=== PATIENT | male | born 1940 | race Caucasian/White ===

== ENCOUNTER 2021-04-20 05:52 | Inpatient (IN) | payer OTHER ==
[~2021-04-20] VITALS: Ht 170.2 cm; Wt 68.0 kg
[~2021-04-20 05:52] MED LIST: ACET325T21 PO; ACET500T68 PO; AMIN30LI2 PO; ASPI-630 PO; BACL20TA PO; BUPR150T21 PO; CARB1TAB47 PO; DIME92CR TP; ESCITALOPRAM OX10 MG PO; FURO-68 PO; KETO120S5 TP; LACT1CAP19 PO; LEVO500T9 PO; LEVO75TA5 PO; LORA0.5T96 PO; MENT118G TP; MULT-245 PO; PANT40TA77 PO; POLY17PO29 PO; POTA-112 PO; PSYL3.4P PO; SENN8.6T11 PO
[2021-04-20] MEDS ORDERED: IV NORMAL SALINE 1000ML BAG 1,000 ML IV ONE (06:15)
[2021-04-20] MEDS ORDERED: ONDANSETRON PF 4 MG/2 ML VIAL. IVP ONE (06:15)
[2021-04-20 06:24] LABS: CREATININE 1.2 mg/dL (0.7-1.3); GFR 58.6; POTASSIUM 4.2 mmol/L (3.5-5.1)
--- NOTE | 2021-04-20 06:24 | PHYS DOC ---
Past Medical History Past Medical History: Anxiety, Depression, GERD, Hypothyroid, Renal Disease, Other Additional Past Medical Histor: Parkinson's, CKD stg II, cogn comms def, esophagitis, torticollis, hernia, Past Surgical History: No Surgical History Additional Past Surgical Histo: R testicle Smoking Status: Never Smoker Alcohol Use: None Drug Use: None General Adult EDM: Chief Complaint: GI PROBLEM HPI: HPI: 80-year-old male past medical history of advanced Parkinson's disease (bedbound, on no AC), CKD stage III, hypothyroidism, cognitive communication deficit, hypothyroidism, GERD, anxiety and depression, presents to the ED from medicalod ge brought by EMS with concern for vomiting 3 times since yesterday afternoon, described as "coffee-ground emesis." EMS reports patient's baseline mental status is GCS 14 and pt was 84% on RA-no oxygen at baseline. Patient is alert, can state his name and date of but history is very limited due to known communication barrier. Pt states "checking on me," but speech in muffled. Paperwork from facility reviewed. H/o covid 12/2019. Last admission in 05/2020 was concerning for bowel obstruction with similar presentation and anemia. Review of Systems: Review of Systems: ROS limited due to communication deficit Heart Score: C/O Chest Pain: No Risk Factors: Risk Factors: DM, Current or recent (<one month) smoker, HTN, HLP, family history of CAD, obesity. Risk Scores: Score 0 - 3: 2.5% MACE over next 6 weeks - Discharge Home Score 4 - 6: 20.3% MACE over next 6 weeks - Admit for Clinical Observation Score 7 - 10: 72.7% MACE over next 6 weeks - Early Invasive Strategies Allergies: Allergies: Allergies Coded Allergies Type Severity Reaction Last Updated Verified Penicillins Allergy Intermediate 03/23/20 Yes Physical Exam: PE: Constitutional: afebrile, non-toxic appearance. HENT: Normocephalic, atraumatic, contracted neck to right, dry mucous membrances Eyes: EOMI, conjunctiva normal, no discharge. Neck: Normal range of motion, supple, Cardiovascular: S1/2 present, tachycardic, 91% on 6LNC Lungs & Thorax: Speaking in full sentences, bilateral equal chest rise, no tachypnea or increased work of breathing Abdomen: soft, no grimace with palpation, no active emesis in ed, no distention Skin: Warm, dry, Back: No midline step offs of tenderness, no CVA tenderness, Extremities: No tenderness, no cyanosis, no lower extremity edema, bruise over right posterior thigh Neurologic: Alert, normal motor function, contracted LEs >> UE-can squeeze fingers Psychologic: Affect normal, mood normal. [] : Light brown stool in diaper, no bright red blood EKG: EKG: Sinus tachycardia 105 bpm, left axis deviation, QRS 128, QTc 477, T wave inversion lead III, aVF, V1 through V5, right bundle branch block present, no ST elevation or ST depression Radiology/Procedures: Radiology/Procedures: []IMAGING REPORT Signed PATIENT: JOSIAH MCKEON ACCOUNT: [id number] : 1940 LOCATION: ER AGE: 80 SEX: M EXAM STATUS: REG ER ORD. PHYSICIAN: RITU RASMUSSEN DO REASON: vomiting PROCEDURE: CT HEAD WO CONTRAST CT Head W/O Contrast: History: Reason: vomiting / Spl. Instructions: / History: Comparison: none Axial images were obtained without contrast. There is moderate diffuse atrophy. There is asymmetry in the brain with the right lateral ventricle larger than left and the left sylvian fissure larger than the right. There is also asymmetry of CSF attenuating fluid anteriorly around the left frontal lobe and medial to the right frontal lobe which could be hygroma or old subdural hematomas. There is no mass effect or gross bleed. There is no focal loss of keenan-white matter distinction to suggest acute ischemia, i.e. stroke. There is fluid in the mastoid air cells on the right. Impression: 1. Atrophy and possible old hygroma or old subdural hematomas. 2. Fluid in the mastoid air cells the right is nonspecific but could be mastoiditis. 3. No acute intracranial findings. End impression PQRS Compliance Statement: One or more of the following individualized dose reduction techniques were utilized for this examination: 1. Automated exposure control 2. Adjustment of the mA and/or kV according to patient size 3. Use of iterative reconstruction technique Electronically signed by: Cee Ballard III, MD (04/20/2021 7:30 AM) [facility] DICTATED and SIGNED BY: CEE BALLARD III, MD DATE: 04/20/21 [id number] IMAGING REPORT Signed PATIENT: JOSIAH MCKEON ACCOUNT: [id number] : 1940 LOCATION: ER AGE: 80 SEX: M EXAM STATUS: REG ER ORD. PHYSICIAN: RITU RASMUSSEN DO REASON: vomiting, cough PROCEDURE: PORTABLE CHEST 1V XR CHEST 1V Clinical History: Reason: vomiting, cough / Spl. Instructions: / History: Technique: AP view of the chest was obtained at 04/20/2021 7:01 AM. Comparison: January 10, 2013. Findings: The heart is top normal limits in size. The portal vessels appear somewhat cephalized this patchy opacity in the lung bases. There is low lung volumes causing crowding of vasculature. Impression: Low lung volumes. Basilar pulmonary infiltrates likely discoid atelectasis. Electronically signed by: Cee Ballard III, MD (04/20/2021 7:44 AM) [facility] DICTATED and SIGNED BY: CEE BALLARD III, MD DATE: 04/20/21 [id number] IMAGING REPORT Signed PATIENT: JOSIAH MCKEON ACCOUNT: [id number] : 1940 LOCATION: ER AGE: 80 SEX: M EXAM STATUS: REG ER ORD. PHYSICIAN: RITU RASMUSSEN DO REASON: vomtiing, r/o obstruction PROCEDURE: CT ABD PELV W/ IV CONTRST ONLY CT OF THE ABDOMEN AND PELVIS WITH IV CONTRAST. History: Reason: vomtiing Comparison: May 21, 2020. Procedure: Contiguous axial images of the abdomen and pelvis were performed after the administration of 60 cc of Omni 300 IV contrast. Oral contrast: No. Findings: There is a large hiatal hernia. There is levoconvex scoliosis of the lumbar spine and elevation right diaphragm. There is patchy opacity lung bases right worse than left. There is beam Mancia artifact due to prior right hip total arthroplasty. Patchy opacity in the lung bases could be discoid atelectasis or scar. There is distention of the rectal vault with air and stool The gallbladder is normal. The appendix is not well seen but is a small caliber loop of bowel inferior to the cecum which is likely appendix. There is portions the colon which are collapsed. Liver: Unremarkable Spleen: Unremarkable Pancreas: Atrophic Adrenal Glands: Unremarkable Kidneys: There is a left renal cyst There is no mass or lymphadenopathy. There is no free air. There is no free fluid. The urinary bladder appears normal. Impression: 1. Basilar pulmonary infiltrates right worse than left likely pneumonia. 2. Mild colonic ileus seen previously. End Impression PQRS Compliance Statement: One or more of the following individualized dose reduction techniques were utilized for this examination: 1. Automated exposure control 2. Adjustment of the mA and/or kV according to patient size 3. Use of iterative reconstruction technique Electronically signed by: Cee Ballard III, MD (04/20/2021 7:42 AM) [facility] DICTATED and SIGNED BY: CEE BALLARD III, MD DATE: 04/20/21 [id number] 0 Course & Med Decision Making: Course & Med Decision Making Pertinent Labs and Imaging studies reviewed. (See chart for details) Concern for bibasilar, consider aspiration, pneumonia in the setting of chronic ileus and hypoxia, requiring nasal cannula. Pt does meet sepsis criteria. CT of the head ordered due to history of vomiting-old hygromas vs sdh (mental status is not different from baseline). Will admit for further medical management. Patient stable at time of admission and agrees with this plan. Per senior care papers patient is a full code. I have spoken with the patient and/or caregivers. I have explained the patient's condition, diagnosis and treatment plan based on the information available to me at this time. I have answered the patient's and/or caregivers questions and answered any concerns. The patient and/or caregivers have as good an understanding of the patient's diagnosis, condition and treatment plan as can be expected at this point. The patient has been stabilized within the capability of the emergency department. The patient will be transported for further care and management or will be moved to an observation or inpatient service. I have communicated with the staff or medical practitioner taking over this patient's care. [place] Disclaimer: [place] Disclaimer: This electronic medical record was generated, in whole or in part, using a voice recognition dictation system. Departure Departure Impression: Primary Impression: Hypoxia Additional Impressions: Aspiration pneumonia Ileus Sepsis Disposition: ADMITTED INPATIENT Admitting Physician: SHAHID (Dr. Pope) Condition: STABLE Referrals: RAMIN FUNES MD (PCP) RITU RASMUSSEN DO Apr 20, 2021 06:24
[2021-04-20] MEDS ORDERED: IOHEXOL 300 MG/ML 100ML VIAL. IV ONE (06:30)
[2021-04-20 06:31] LABS: ALBUMIN 3.6 g/dL (3.4-5.0); DIRECT BILIRUBIN 0.2 mg/dL (0.0-0.2); MAGNESIUM 2.2 mg/dL (1.8-2.4); TOTAL BILIRUBIN 0.7 mg/dL (0.2-1.0); TOTAL PROTEIN 7.4 g/dL (6.4-8.2)
[2021-04-20 06:42] LABS: PROTHROMBIN TIME PATIENT 14.5 SEC (11.7-14.0)
[2021-04-20 06:44] LABS: BASO % 0 % (0-3); EOS % 0 % (0-3); HEMATOCRIT 45.2 % (39.0-53.0); HEMOGLOBIN 15.1 g/dL (13.0-17.5); LYMPH # 1.5 x10^3/uL (1.0-4.8); LYMPH % 10 % (24-48); MEAN CORPUSCULAR HEMOGLOBIN 30 pg (25-35); MEAN CORPUSCULAR HGB CONC 34 g/dL (31-37); MEAN CORPUSCULAR VOLUME 90 fL (79-100); MONO # 0.6 x10^3/uL (0.0-1.1); MONO % 4 % (0-9); NEUT % 85 % (31-73); PLATELET COUNT 213 x10^3/uL (140-400); RED BLOOD COUNT 5.01 x10^6/uL (4.30-5.70); RED CELL DISTRIBUTION WIDTH 14.6 % (11.5-14.5)
[2021-04-20] MEDS ORDERED: CONTRAST GIVEN. MC PRN (06:45)
--- NOTE | 2021-04-20 07:32 | RAD ---
CT Head W/O Contrast: History: Reason: vomiting / Spl. Instructions: / History: Comparison: none Axial images were obtained without contrast. There is moderate diffuse atrophy. There is asymmetry in the brain with the right lateral ventricle l arger than left and the left sylvian fissure larger than the right. There is also asymmetry of CSF at tenuating fluid anteriorly around the left frontal lobe and medial to the right frontal lobe which co uld be hygroma or old subdural hematomas. There is no mass effect or gross bleed. There is no focal loss of keenan-white matter distinction to suggest acute ischemia, i.e. stroke. There is fluid in the mastoid air cells on the right. Impression: 1. Atrophy and possible old hygroma or old subdural hematomas. 2. Fluid in the mastoid air cells the right is nonspecific but could be mastoiditis. 3. No acute intracranial findings. End impression PQRS Compliance Statement: One or more of the following individualized dose reduction techniques were utilized for this examinat ion: 1. Automated exposure control 2. Adjustment of the mA and/or kV according to patient size 3. Use of iterative reconstruction technique Electronically signed by: Prosper Bingham III, MD (04/20/2021 7:30 AM) [facility]
[2021-04-20 07:43] LABS: BILIRUBIN,URINE NEGATIVE (NEG); CLARITY,URINE CLEAR; COLOR,URINE YELLOW; NITRITE,URINE NEGATIVE (NEG); PROTEIN,URINE NEGATIVE (NEG-TRACE)
--- NOTE | 2021-04-20 07:44 | RAD ---
CT OF THE ABDOMEN AND PELVIS WITH IV CONTRAST. History: Reason: vomtiing Comparison: May 21, 2020. Procedure: Contiguous axial images of the abdomen and pelvis were performed after the administration of 60 cc o f Omni 300 IV contrast. Oral contrast: No. Findings: There is a large hiatal hernia. There is levoconvex scoliosis of the lumbar spine and elevation right diaphragm. There is patchy opacity lung bases right worse than left. There is beam Mancia artifact due to prior right hip total arthroplasty. Patchy opacity in the lung bases could be discoid atelectasis or scar. There is distention of the rectal vault with air and stool The gallbladder is normal. The appendix is not well seen but is a small caliber loop of bowel inferior to the cecum which is lik dominique appendix. There is portions the colon which are collapsed. Liver: Unremarkable Spleen: Unremarkable Pancreas: Atrophic Adrenal Glands: Unremarkable Kidneys: There is a left renal cyst There is no mass or lymphadenopathy. There is no free air. There is no free fluid. The urinary bladder appears normal. Impression: 1. Basilar pulmonary infiltrates right worse than left likely pneumonia. 2. Mild colonic ileus seen previously. End Impression PQRS Compliance Statement: One or more of the following individualized dose reduction techniques were utilized for this examinat ion: 1. Automated exposure control 2. Adjustment of the mA and/or kV according to patient size 3. Use of iterative reconstruction technique Electronically signed by: Prosper Bingham III, MD (04/20/2021 7:42 AM) [facility]
--- NOTE | 2021-04-20 07:46 | RAD ---
XR CHEST 1V Clinical History: Reason: vomiting, cough / Spl. Instructions: / History: Technique: AP view of the chest was obtained at 04/20/2021 7:01 AM. Comparison: January 10, 2013. Findings: The heart is top normal limits in size. The portal vessels appear somewhat cephalized this patchy [place] in the lung bases. There is low lung volumes causing crowding of vasculature. Impression: Low lung volumes. Basilar pulmonary infiltrates likely discoid atelectasis. Electronically signed by: Prosper Bingham III, MD (04/20/2021 7:44 AM) [facility]
[2021-04-20 07:50] LABS: BARBITURATES NEG (NEG); BENZODIAZEPINES NEG (NEG); CANNABINOIDS NEG (NEG); COCAINE NEG (NEG); METHADONE NEG (NEG); OPIATES NEG (NEG); PHENCYCLIDINE NEG (NEG)
[2021-04-20 07:53] LABS: AMPHETAMINE/METHAMPHETAMINE NEG (NEG)
[2021-04-20] MEDS ORDERED: CLINDAMYCIN 600MG PREMIX 50 ML IV ONE (08:00)
[2021-04-20] MEDS ORDERED: cefTRIAXone IV Push 1 GM VIAL. IVP ONE (08:00)
[2021-04-20 08:18] LABS: BACTERIA,URINE FEW /HPF (0-FEW); RBC,URINE 0 /HPF (0-2)
[2021-04-20 08:27] LABS: BASE EXCESS ABG 1 mmol/L (-3-3); FIO2 ABG 44; HCO3 ABG 24 mmol/L (21-28); PCO2 ABG 37 mmHg (35-46); PO2 ABG 81 mmHg (65-108); SAT O2 ABG 95 % (92-99)
[2021-04-20] MEDS: ASPIRIN CHEWABLE 81 MG TABLET. PO SCH (10:00)
[2021-04-20] MEDS: CARBIDOPA/LEVODOPA 25/100MG TABLET PO SCH ×3 (10:00→20:36)
[2021-04-20] MEDS: CITALOPRAM 20 MG TABLET. PO SCH (10:00)
--- NOTE | 2021-04-20 10:20 | PDOC1 ---
History and Physical Date of Admission Date of Admission DATE: 04/20/21 TIME: 09:49 Identification/Chief Complaint Chief Complaint Coffee-ground emesis Source Source: Chart review, Patient History of Present Illness History of Present Illness Patient 80-year-old male past medical history Parkinson's disease, CKD, hypothyroidism, cognitive communication deficit, GERD, anxiety/depression, who presents from [facility] with concerns of 3 episodes of coffee-ground emesis yesterday. Per EMS report, he was 85% on room air. He does not require any oxygen at baseline. Upon arrival in the ED he was placed on 6 L of nasal cannula with improvement in O2 saturation. Labs admission showed WBC 14.0, hemoglobin 15.1, hematocrit 45.2, BUN 33, creatinine 1.2, CBG 183, lactic acid 2.0. Chest x-ray showed low lung volumes, basilar pulmonary infiltrates. CT abdomen/pelvis showed basilar pulmonary infiltrates, right worse than left, and mild colonic ileus seen that was previously. In the ED he was given clindamycin, Rocephin, and IV fluids. Will be patient for further medical management. Past Medical History CENTRAL NERVOUS SYSTEM: Dementia, Other GI: Constipation Psych: Anxiety, Depression Endocrine: Hypothyroidism Past Surgical History Past Surgical History: No pertinent history Family History Family History: Family History Unknown Social History Smoke: No ALCOHOL: none Drugs: None Current Problem List Problem List Problems Medical Problems: (1) Aspiration pneumonia Status: Acute (2) Hypoxia Status: Acute (3) Ileus Status: Acute (4) Sepsis Status: Acute Current Medications Current Medications Current Medications Sodium Chloride 1,000 ml @ 1,000 mls/hr 1X ONCE IV Last administered on 04/20/21at 06:18; Start 04/20/21 at 06:15; Stop 04/20/21 at 07:14; Status DC Ondansetron HCl (Zofran) 4 mg 1X ONCE IVP Last administered on 04/20/21at 06:18; Start 04/20/21 at 06:15; Stop 04/20/21 at 06:17; Status DC Iohexol (Omnipaque 300 Mg/ml) 60 ml 1X ONCE IV ; Start 04/20/21 at 06:30; Stop 04/20/21 at 06:32; Status DC Info (CONTRAST GIVEN -- Rx MONITORING) 1 each PRN DAILY PRN MC SEE COMMENTS; Start 04/20/21 at 06:45; Stop 04/22/21 at 06:44 Ceftriaxone Sodium (Rocephin) 1 gm 1X ONCE IVP Last administered on 04/20/21at 08:26; Start 04/20/21 at 08:00; Stop 04/20/21 at 08:01; Status DC Clindamycin Phosphate 50 ml @ 100 mls/hr 1X ONCE IV Last administered on 04/20/21at 08:29; Start 04/20/21 at 08:00; Stop 04/20/21 at 08:29; Status DC Aspirin (Aspirin Chewable) 81 mg DAILY PO ; Start 04/21/21 at 09:00; Status UNV Bupropion HCl (Wellbutrin Xl) 150 mg DAILYWBKFT PO ; Start 04/21/21 at 08:00; Status UNV Levothyroxine Sodium (Synthroid) 75 mcg HS PO ; Start 04/20/21 at 21:00; Status UNV Non-Formulary Medication (Amino Acids/ Protein Hydrolys (Pro-Stat Liquid)) 30 ml BID PO ; Start 04/20/21 at 21:00; Status UNV Non-Formulary Medication (Carbidopa/ Levodopa (Carbidopa-Levo 25-100 Mg Odt)) 1 each TID PO ; Start 04/20/21 at 14:00; Status UNV Non-Formulary Medication (Escitalopram Oxalate ) 1 tab DAILY PO ; Start 04/21/21 at 09:00; Status UNV Active Scripts Active Culturelle (Lactobacillus Rhamnosus Gg) 1 Each Cap.sprink 1 Cap PO BID 14 Days Pantoprazole Sodium (Pantoprazole Sodium) 40 Mg Tablet.dr 40 Mg PO DAILYAC 14 Days Metamucil Fiber Singles Packet (Psyllium Husk/Aspartame) 3.4 Gm Powd.pack 1 Pkt PO DAILY16 30 Days Reported Acetaminophen 500 Mg Tablet 1 Tab PO BID PRN 30 Days Senna Laxative (Sennosides) 8.6 Mg Tablet 8.6 Mg PO HS Pro-Stat Liquid (Amino Acids/Protein Hydrolys) 30 Ml Liquid.pkt 30 Ml PO BID Klor-Con 10 (Potassium Chloride) 10 Meq Tablet.er 1 Tab PO DAILY 30 Days Nizoral (Ketoconazole) 120 Ml Shampoo 120 Ml TP TUSA Multi Vitamin Daily (Multivitamin) 1 Each Tablet 1 Tab PO DAILY 30 Days Miralax (Polyethylene Glycol 3350) 17 Gm Powd.pack 1 Packet PO DAILY 2 Days dissolve in water Ativan (Lorazepam) 0.5 Mg Tablet 0.5 Mg PO HS Escitalopram Oxalate 10 Mg Tablet 1 Tab PO DAILY Levothyroxine Sodium 75 Mcg Tablet 1 Tab PO HS Cavilon Durable Barrier (Dimethicone) 92 Gm Cream..g. 92 Gm TP BID Carbidopa-Levo 25-100 Mg Odt (Carbidopa/Levodopa) 1 Each Tab.rapdis 1 Each PO TID Bupropion Xl (Bupropion Hcl) 150 Mg Tab.er.24h 1 Tab PO DAILYWBKFT Biofreeze (Menthol) 118 Ml Gel..ml. 1 Anibal TP TID 10 Days Baclofen 20 Mg Tablet 1 Tab PO TID Aspirin 81 Mg Tab.chew 1 Tab PO DAILY Allergies Allergies: Coded Allergies: Penicillins (Verified Allergy, Intermediate, 03/23/20) ROS Review of System GENERAL: No history of weight change, weakness or fevers. SKIN: No bruising, hair changes or rashes. EYES: No blurred, double or loss of vision. NOSE AND THROAT: No history of nosebleeds, hoarseness or sore throat. HEART: Denies chest pain, denies palpitations. LUNGS: Denies cough, hemoptysis, wheezing or shortness of breath. GASTROINTESTINAL: Coffee-ground emesis. Denies abdominal pain. GENITOURINARY: Denies dysuria, frequency, urgency, hematuria. NEUROLOGIC: Denies history of numbness, tingling, tremor or weakness. PSYCHIATRIC: Denies anxiety, denies depression. ENDOCRINE: No history of heat or cold intolerance, polyuria or polydipsia. EXTREMITIES: Denies muscle weakness, joint pain, pain on walking or stiffness. Physical Exam Physical Exam General: Alert, Oriented X3, Cooperative, No acute distress HEENT: Neck contracted to the right. PERRLA, EOMI Lungs: Bibasilar crackles, normal air movement Heart: RRR, no murmurs Cardiovascular: S1, S2 Abdomen: Normal bowel sounds, Soft, No tenderness Extremities: Contracted lower extremities. No clubbing, No cyanosis Skin: No rashes, No significant lesion Neuro: Normal speech, Sensation intact Psych/Mental Status: Mental status NL, Mood NL Vitals Vitals Vital Signs Date Time Temp Pulse Resp B/P (MAP) Pulse Ox O2 Delivery O2 Flow Rate FiO2 04/20/21 06:30 102 167/90 (115) 91 Nasal Cannula 6.0 04/20/21 06:00 97.8 22 97.8 Labs Labs Laboratory Tests Test 04/20/21 06:00 04/20/21 06:05 04/20/21 07:27 04/20/21 08:22 White Blood Count 14.0 x10^3/uL (4.0-11.0) Red Blood Count 5.01 x10^6/uL (4.30-5.70) Hemoglobin 15.1 g/dL (13.0-17.5) Hematocrit 45.2 % (39.0-53.0) Mean Corpuscular Volume 90 fL (79-100) Mean Corpuscular Hemoglobin 30 pg (25-35) Mean Corpuscular Hemoglobin Concent 34 g/dL (31-37) Red Cell Distribution Width 14.6 % (11.5-14.5) Platelet Count 213 x10^3/uL (140-400) Neutrophils (%) (Auto) 85 % (31-73) Lymphocytes (%) (Auto) 10 % (24-48) Monocytes (%) (Auto) 4 % (0-9) Eosinophils (%) (Auto) 0 % (0-3) Basophils (%) (Auto) 0 % (0-3) Neutrophils # (Auto) 12.0 x10^3/uL (1.8-7.7) Lymphocytes # (Auto) 1.5 x10^3/uL (1.0-4.8) Monocytes # (Auto) 0.6 x10^3/uL (0.0-1.1) Eosinophils # (Auto) 0.0 x10^3/uL (0.0-0.7) Basophils # (Auto) 0.0 x10^3/uL (0.0-0.2) Sodium Level 141 mmol/L (136-145) Potassium Level 4.2 mmol/L (3.5-5.1) Chloride Level 105 mmol/L (98-107) Carbon Dioxide Level 25 mmol/L (21-32) Anion Gap 11 (6-14) Blood Urea Nitrogen 33 mg/dL (8-26) Creatinine 1.2 mg/dL (0.7-1.3) Estimated GFR (Cockcroft-Gault) 58.6 Glucose Level 183 mg/dL (70-99) Calcium Level 9.0 mg/dL (8.5-10.1) Magnesium Level 2.2 mg/dL (1.8-2.4) Total Bilirubin 0.7 mg/dL (0.2-1.0) Direct Bilirubin 0.2 mg/dL (0.0-0.2) Aspartate Amino Transf (AST/SGOT) 21 U/L (15-37) Alanine Aminotransferase (ALT/SGPT) 14 U/L (16-63) Alkaline Phosphatase 94 U/L (46-116) Creatine Kinase 41 U/L (39-308) Troponin I High Sensitivity 6 ng/L (4-75) SR-Ikp-A-Type Natriuretic Peptide 370 pg/mL (0-449) Total Protein 7.4 g/dL (6.4-8.2) Albumin 3.6 g/dL (3.4-5.0) Prothrombin Time 14.5 SEC (11.7-14.0) Prothromb Time International Ratio 1.1 (0.8-1.1) Activated Partial Thromboplast Time 29 SEC (24-38) Lactic Acid Level 2.0 mmol/L (0.4-2.0) Urine Collection Type U cath Urine Color Yellow Urine Clarity Clear Urine pH 7.0 (<5.0-8.0) Urine Specific [place] >=1.030 (1.000-1.030) Urine Protein Negative mg/dL (NEG-TRACE) Urine Glucose (UA) Negative mg/dL (NEG) Urine Ketones (Stick) Trace mg/dL (NEG) Urine Blood Negative (NEG) Urine Nitrite Negative (NEG) Urine Bilirubin Negative (NEG) Urine Urobilinogen Dipstick 1.0 mg/dL (0.2 mg/dL) Urine Leukocyte Esterase Negative (NEG) Urine RBC 0 /HPF (0-2) Urine WBC 1-4 /HPF (0-4) Urine Bacteria Few /HPF (0-FEW) Urine Opiates Screen Neg (NEG) Urine Methadone Screen Neg (NEG) Urine Barbiturates Neg (NEG) Urine Phencyclidine Screen Neg (NEG) Urine Amphetamine/Methamphetamine Neg (NEG) Urine Benzodiazepines Screen Neg (NEG) Urine Cocaine Screen Neg (NEG) Urine Cannabinoids Screen Neg (NEG) Urine Ethyl Alcohol Neg (NEG) SARS-CoV-2 Antigen (Rapid) Negative (NEGATIVE) Test 04/20/21 08:24 O2 Saturation 95 % (92-99) Arterial Blood pH 7.44 (7.35-7.45) Arterial Blood pCO2 at Patient Temp 37 mmHg (35-46) Arterial Blood pO2 at Patient Temp 81 mmHg (65-108) Arterial Blood HCO3 24 mmol/L (21-28) Arterial Blood Base Excess 1 mmol/L (-3-3) FiO2 44 Laboratory Tests Test 04/20/21 06:00 04/20/21 06:05 04/20/21 07:27 04/20/21 08:22 White Blood Count 14.0 x10^3/uL (4.0-11.0) Red Blood Count 5.01 x10^6/uL (4.30-5.70) Hemoglobin 15.1 g/dL (13.0-17.5) Hematocrit 45.2 % (39.0-53.0) Mean Corpuscular Volume 90 fL (79-100) Mean Corpuscular Hemoglobin 30 pg (25-35) Mean Corpuscular Hemoglobin Concent 34 g/dL (31-37) Red Cell Distribution Width 14.6 % (11.5-14.5) Platelet Count 213 x10^3/uL (140-400) Neutrophils (%) (Auto) 85 % (31-73) Lymphocytes (%) (Auto) 10 % (24-48) Monocytes (%) (Auto) 4 % (0-9) Eosinophils (%) (Auto) 0 % (0-3) Basophils (%) (Auto) 0 % (0-3) Neutrophils # (Auto) 12.0 x10^3/uL (1.8-7.7) Lymphocytes # (Auto) 1.5 x10^3/uL (1.0-4.8) Monocytes # (Auto) 0.6 x10^3/uL (0.0-1.1) Eosinophils # (Auto) 0.0 x10^3/uL (0.0-0.7) Basophils # (Auto) 0.0 x10^3/uL (0.0-0.2) Sodium Level 141 mmol/L (136-145) Potassium Level 4.2 mmol/L (3.5-5.1) Chloride Level 105 mmol/L (98-107) Carbon Dioxide Level 25 mmol/L (21-32) Anion Gap 11 (6-14) Blood Urea Nitrogen 33 mg/dL (8-26) Creatinine 1.2 mg/dL (0.7-1.3) Estimated GFR (Cockcroft-Gault) 58.6 Glucose Level 183 mg/dL (70-99) Calcium Level 9.0 mg/dL (8.5-10.1) Magnesium Level 2.2 mg/dL (1.8-2.4) Total Bilirubin 0.7 mg/dL (0.2-1.0) Direct Bilirubin 0.2 mg/dL (0.0-0.2) Aspartate Amino Transf (AST/SGOT) 21 U/L (15-37) Alanine Aminotransferase (ALT/SGPT) 14 U/L (16-63) Alkaline Phosphatase 94 U/L (46-116) Creatine Kinase 41 U/L (39-308) Troponin I High Sensitivity 6 ng/L (4-75) FQ-Dnj-G-Type Natriuretic Peptide 370 pg/mL (0-449) Total Protein 7.4 g/dL (6.4-8.2) Albumin 3.6 g/dL (3.4-5.0) Prothrombin Time 14.5 SEC (11.7-14.0) Prothromb Time International Ratio 1.1 (0.8-1.1) Activated Partial Thromboplast Time 29 SEC (24-38) Lactic Acid Level 2.0 mmol/L (0.4-2.0) Urine Collection Type U cath Urine Color Yellow Urine Clarity Clear Urine pH 7.0 (<5.0-8.0) Urine Specific Bells >=1.030 (1.000-1.030) Urine Protein Negative mg/dL (NEG-TRACE) Urine Glucose (UA) Negative mg/dL (NEG) Urine Ketones (Stick) Trace mg/dL (NEG) Urine Blood Negative (NEG) Urine Nitrite Negative (NEG) Urine Bilirubin Negative (NEG) Urine Urobilinogen Dipstick 1.0 mg/dL (0.2 mg/dL) Urine Leukocyte Esterase Negative (NEG) Urine RBC 0 /HPF (0-2) Urine WBC 1-4 /HPF (0-4) Urine Bacteria Few /HPF (0-FEW) Urine Opiates Screen Neg (NEG) Urine Methadone Screen Neg (NEG) Urine Barbiturates Neg (NEG) Urine Phencyclidine Screen Neg (NEG) Urine Amphetamine/Methamphetamine Neg (NEG) Urine Benzodiazepines Screen Neg (NEG) Urine Cocaine Screen Neg (NEG) Urine Cannabinoids Screen Neg (NEG) Urine Ethyl Alcohol Neg (NEG) SARS-CoV-2 Antigen (Rapid) Negative (NEGATIVE) Test 04/20/21 08:24 O2 Saturation 95 % (92-99) Arterial Blood pH 7.44 (7.35-7.45) Arterial Blood pCO2 at Patient Temp 37 mmHg (35-46) Arterial Blood pO2 at Patient Temp 81 mmHg (65-108) Arterial Blood HCO3 24 mmol/L (21-28) Arterial Blood Base Excess 1 mmol/L (-3-3) FiO2 44 Images Images [address] [address] IMAGING REPORT Signed PATIENT: JOSIAH MCKEON ACCOUNT: [id number] : 1940 LOCATION: ER AGE: 80 SEX: M EXAM STATUS: REG ER ORD. PHYSICIAN: RITU RASMUSSEN DO REASON: vomiting, cough PROCEDURE: PORTABLE CHEST 1V XR CHEST 1V Clinical History: Reason: vomiting, cough / Spl. Instructions: / History: Technique: AP view of the chest was obtained at 04/20/2021 7:01 AM. Comparison: January 10, 2013. Findings: The heart is top normal limits in size. The portal vessels appear somewhat cephalized this patchy opacity in the lung bases. There is low lung volumes causing crowding of vasculature. Impression: Low lung volumes. Basilar pulmonary infiltrates likely discoid atelectasis. Electronically signed by: Prosper Bingham III, MD (04/20/2021 7:44 AM) [facility] [address] [place] [address] IMAGING REPORT Signed PATIENT: JOSIAH MCKEON ACCOUNT: [id number] : 1940 LOCATION: ER AGE: 80 SEX: M EXAM STATUS: REG ER ORD. PHYSICIAN: RITU RASMUSSEN DO REASON: vomtiing, r/o obstruction PROCEDURE: CT ABD PELV W/ IV CONTRST ONLY CT OF THE ABDOMEN AND PELVIS WITH IV CONTRAST. History: Reason: vomtiing Comparison: May 21, 2020. Procedure: Contiguous axial images of the abdomen and pelvis were performed after the administration of 60 cc of Omni 300 IV contrast. Oral contrast: No. Findings: There is a large hiatal hernia. There is levoconvex scoliosis of the lumbar spine and elevation right diaphragm. There is patchy opacity lung bases right worse than left. There is beam Mancia artifact due to prior right hip total arthroplasty. Patchy opacity in the lung bases could be discoid atelectasis or scar. There is distention of the rectal vault with air and stool The gallbladder is normal. The appendix is not well seen but is a small caliber loop of bowel inferior to t he cecum which is likely appendix. There is portions the colon which are collapsed. Liver: Unremarkable Spleen: Unremarkable Pancreas: Atrophic Adrenal Glands: Unremarkable Kidneys: There is a left renal cyst There is no mass or lymphadenopathy. There is no free air. There is no free fluid. The urinary bladder appears normal. Impression: 1. Basilar pulmonary infiltrates right worse than left likely pneumonia. 2. Mild colonic ileus seen previously. VTE Prophylaxis Ordered VTE Prophylaxis Devices: No VTE Pharmacological Prophylaxi: Yes Assessment/Plan Assessment/Plan Acute respiratory failure with hypoxia Aspiration pneumonia Parkinson's disease Dysphagia Wheelchair dependent Plan: Will continue treatment with aspiration ammonia with Rocephin and metronidazole Hemoglobin is stable at this time. If recurrence of coffee-ground emesis will test for occult blood. Supportive oxygen therapy as needed Will consult ST to evaluate and treat Hold home medications until seen by speech therapy Will provide with IV medications we can at this time FEN - NPO PPX - Heparin FULL CODE Dispo - inpatient for above Surrogate decision maker is Lizeth Parada Justifications for Admission Other Justification FARHEEN CHO MD Apr 20, 2021 10:20
[2021-04-20] MEDS ORDERED: ACETAMINOPHEN 325 MG TABLET. PO PRN (10:30)
[2021-04-20] MEDS ORDERED: MAG HYDROX/ALUMINUM HYD/SIMETH 30 ML ORAL.SUSP PO PRN (10:30)
[2021-04-20] MEDS ORDERED: CALCIUM CARBONATE 500 MG TAB.CHEW PO PRN (10:30)
[2021-04-20] MEDS ORDERED: MAGNESIUM HYDROXIDE 2,400 MG/30 ML ORAL.SUSP. PO PRN (10:30)
[2021-04-20] MEDS ORDERED: MORPHINE SULFATE 2 MG/ML INJ. IV PRN (10:30)
[2021-04-20] MEDS ORDERED: ONDANSETRON PF 4 MG/2 ML VIAL. IVP PRN (10:30)
[2021-04-20] MEDS: buPROPion XL 150 MG TAB.ER.24H. PO SCH (10:49)
[2021-04-20] MEDS: cefTRIAXone IV Push 1 GM VIAL. IVP SCH (10:57)
[2021-04-20 11:00] VITALS: BP 203/105
[2021-04-20] MEDS ORDERED: hydrALAZINE 20 MG/ML VIAL. IVP PRN (11:45)
[2021-04-20] MEDS ORDERED: HEPARIN for SUB-Q USE 5,000 UNIT/ML VIAL. SQ SCH (12:00)
[2021-04-20 12:06] LABS: FECAL OB PT POSITIVE (NEG)
--- NOTE | 2021-04-20 13:23 | PDOC2 ---
GI CONSULT Date of Service: DATE: 04/20/21 TIME: 13:05 Reason For Consult: coffee-ground emesis HPI: HPI: 80 y/o male sent to ER from longterm w/ concern for coffee-ground emesis, admitted w/ resp failure, suspected aspiration pneumonia, We saw in 04/2020 for vomiting/coffee-ground emesis, large hiatal hernia, and constipation. Symptoms resolved spontaneously then. Additional h/o Parkinson's, dementia, torticollis, dysphagia (on pureed diet when we last saw), and COVID infection in 12/2019. Pt is unable to provide much history. He denies pain. NG tube has has been placed, awaiting x-ray confirmation. Staff says has not stooled. Labs show leukocytosis, normal Hgb, elevated BUN (33), +Hemoccult, negative COVID. Imaging notes basilar pulmonary infiltrates (right > left, likely pneumonia), large hiatal hernia, and mild colonic ileus seen previously. PMH: PMH: Parkinson's, dysphagia, dementia, torticollis, COVID, hypothyroidism, anxiety, depression right orchiectomy FH: Family History: Other (unable to obtain) Social History: Smoke: No ALCOHOL: none Drugs: None ROS: Difficult to obtain. Vitals: Vitals: Vital Signs Date Time Temp Pulse Resp B/P (MAP) Pulse Ox O2 Delivery O2 Flow Rate FiO2 04/20/21 11:56 86 203/105 04/20/21 11:00 99.9 18 98 Nasal Cannula 5.0 99.9 Labs: Labs: Laboratory Tests Test 04/20/21 06:00 04/20/21 06:05 04/20/21 07:27 04/20/21 08:22 White Blood Count 14.0 x10^3/uL (4.0-11.0) Red Blood Count 5.01 x10^6/uL (4.30-5.70) Hemoglobin 15.1 g/dL (13.0-17.5) Hematocrit 45.2 % (39.0-53.0) Mean Corpuscular Volume 90 fL (79-100) Mean Corpuscular Hemoglobin 30 pg (25-35) Mean Corpuscular Hemoglobin Concent 34 g/dL (31-37) Red Cell Distribution Width 14.6 % (11.5-14.5) Platelet Count 213 x10^3/uL (140-400) Neutrophils (%) (Auto) 85 % (31-73) Lymphocytes (%) (Auto) 10 % (24-48) Monocytes (%) (Auto) 4 % (0-9) Eosinophils (%) (Auto) 0 % (0-3) Basophils (%) (Auto) 0 % (0-3) Neutrophils # (Auto) 12.0 x10^3/uL (1.8-7.7) Lymphocytes # (Auto) 1.5 x10^3/uL (1.0-4.8) Monocytes # (Auto) 0.6 x10^3/uL (0.0-1.1) Eosinophils # (Auto) 0.0 x10^3/uL (0.0-0.7) Basophils # (Auto) 0.0 x10^3/uL (0.0-0.2) Sodium Level 141 mmol/L (136-145) Potassium Level 4.2 mmol/L (3.5-5.1) Chloride Level 105 mmol/L (98-107) Carbon Dioxide Level 25 mmol/L (21-32) Anion Gap 11 (6-14) Blood Urea Nitrogen 33 mg/dL (8-26) Creatinine 1.2 mg/dL (0.7-1.3) Estimated GFR (Cockcroft-Gault) 58.6 Glucose Level 183 mg/dL (70-99) Calcium Level 9.0 mg/dL (8.5-10.1) Magnesium Level 2.2 mg/dL (1.8-2.4) Total Bilirubin 0.7 mg/dL (0.2-1.0) Direct Bilirubin 0.2 mg/dL (0.0-0.2) Aspartate Amino Transf (AST/SGOT) 21 U/L (15-37) Alanine Aminotransferase (ALT/SGPT) 14 U/L (16-63) Alkaline Phosphatase 94 U/L (46-116) Creatine Kinase 41 U/L (39-308) Troponin I High Sensitivity 6 ng/L (4-75) DI-Ixe-G-Type Natriuretic Peptide 370 pg/mL (0-449) Total Protein 7.4 g/dL (6.4-8.2) Albumin 3.6 g/dL (3.4-5.0) Prothrombin Time 14.5 SEC (11.7-14.0) Prothromb Time International Ratio 1.1 (0.8-1.1) Activated Partial Thromboplast Time 29 SEC (24-38) Lactic Acid Level 2.0 mmol/L (0.4-2.0) Urine Collection Type U cath Urine Color Yellow Urine Clarity Clear Urine pH 7.0 (<5.0-8.0) Urine Specific [place] >=1.030 (1.000-1.030) Urine Protein Negative mg/dL (NEG-TRACE) Urine Glucose (UA) Negative mg/dL (NEG) Urine Ketones (Stick) Trace mg/dL (NEG) Urine Blood Negative (NEG) Urine Nitrite Negative (NEG) Urine Bilirubin Negative (NEG) Urine Urobilinogen Dipstick 1.0 mg/dL (0.2 mg/dL) Urine Leukocyte Esterase Negative (NEG) Urine RBC 0 /HPF (0-2) Urine WBC 1-4 /HPF (0-4) Urine Bacteria Few /HPF (0-FEW) Urine Opiates Screen Neg (NEG) Urine Methadone Screen Neg (NEG) Urine Barbiturates Neg (NEG) Urine Phencyclidine Screen Neg (NEG) Urine Amphetamine/Methamphetamine Neg (NEG) Urine Benzodiazepines Screen Neg (NEG) Urine Cocaine Screen Neg (NEG) Urine Cannabinoids Screen Neg (NEG) Urine Ethyl Alcohol Neg (NEG) SARS-CoV-2 RNA (MIKE) Negative (Negative) SARS-CoV-2 Antigen (Rapid) Negative (NEGATIVE) Test 04/20/21 08:24 04/20/21 11:05 04/20/21 12:24 O2 Saturation 95 % (92-99) Arterial Blood pH 7.44 (7.35-7.45) Arterial Blood pCO2 at Patient Temp 37 mmHg (35-46) Arterial Blood pO2 at Patient Temp 81 mmHg (65-108) Arterial Blood HCO3 24 mmol/L (21-28) Arterial Blood Base Excess 1 mmol/L (-3-3) FiO2 44 Stool Occult Blood Positive (NEG) Glucose (Fingerstick) 183 mg/dL (70-99) Allergies: Coded Allergies: Penicillins (Verified Allergy, Intermediate, 03/23/20) Medications: Current Medications Medications (Trade) Dose Ordered Sig/Giselle Route PRN Reason Start Time Stop Time Status Last Admin Dose Admin Sodium Chloride 1,000 ml @ 1,000 mls/hr 1X ONCE IV 04/20/21 06:15 04/20/21 07:14 DC 04/20/21 06:18 Ondansetron HCl (Zofran) 4 mg 1X ONCE IVP 04/20/21 06:15 04/20/21 06:17 DC 04/20/21 06:18 Ceftriaxone Sodium (Rocephin) 1 gm 1X ONCE IVP 04/20/21 08:00 04/20/21 08:01 DC 04/20/21 08:26 Clindamycin Phosphate 50 ml @ 100 mls/hr 1X ONCE IV 04/20/21 08:00 04/20/21 08:29 DC 04/20/21 08:29 Ceftriaxone Sodium (Rocephin) 1 gm Q24H IVP 04/20/21 10:00 04/20/21 10:57 Metronidazole 100 ml @ 100 mls/hr Q8HRS IV 04/20/21 11:00 04/20/21 10:56 Hydralazine HCl (Apresoline Inj) 10 mg PRN Q4HRS PRN IVP ELEVATED BP, SEE COMMENTS 04/20/21 11:45 04/20/21 11:56 Imaging: Imaging: CXR 04/20 Impression: Low lung volumes. Basilar pulmonary infiltrates likely discoid atelectasis. Head CT Impression: 1. Atrophy and possible old hygroma or old subdural hematomas. 2. Fluid in the mastoid air cells the right is nonspecific but could be mastoiditis. 3. No acute intracranial findings. CT A/P Findings: There is a large hiatal hernia. There is levoconvex scoliosis of the lumbar spine and elevation right diaphragm. There is patchy opacity lung bases right worse than left. There is beam Mancia artifact due to prior right hip total arthroplasty. Patchy opacity in the lung bases could be discoid atelectasis or scar. There is distention of the rectal vault with air and stool The gallbladder is normal. The appendix is not well seen but is a small caliber loop of bowel inferior to the cecum which is likely appendix. There is portions the colon which are collapsed. Liver: Unremarkable Spleen: Unremarkable Pancreas: Atrophic Adrenal Glands: Unremarkable Kidneys: There is a left renal cyst There is no mass or lymphadenopathy. There is no free air. There is no free fluid. The urinary bladder appears normal. Impression: 1. Basilar pulmonary infiltrates right worse than left likely pneumonia. 2. Mild colonic ileus seen previously. PE: GEN: appears chronically ill HEENT: neck contracted to right, has NG, drops of red blood from nares LUNGS: tachypneic, NC 5L, crackles HEART: borderline tachycardic ABD: quiet, soft, non-tender - watery coffee-ground material near mouth on bedding and floor EXTREMITY: contractures SKIN: No jaundice NEURO/PSYCH: lethargic, briefly opens eyes A/P: A/P: Coffee-ground emesis, resp failure, suspected aspiration pneumonia HTN Leukocytosis Large hiatal hernia, h/o vomiting H/o constipation, mild colonic ileus on CT report H/o Parkinson's, torticollis, dementia, and dysphagia H/o COVID 12/2019 - negative now -- NPO. Await confirmation of proper NG placement, place tube to suction. Add IV PPI. Consider suppository. Hgb normal - follow. Concern for aspiration could be related to vomiting w/ large hiatal hernia. High risk for surgical repair. Hold off on DIE FITTER eval until safe to try PO. TA BERRIOS Apr 20, 2021 13:23
[2021-04-20 15:00] VITALS: BP 132/84
--- NOTE | 2021-04-20 15:59 | EKG ---
[facility] [address] [place] [address] Test Date: 2021-04-20 Test Time: 06:15:06 Pat Name: JOSIAH MCKEON Department: Room: [facility] Gender: M [employer] Office [employer]: : 1940 Requested By: RITU RASMUSSEN Order Number: [id number] Reading MD: Kenrick Lacey Measurements Intervals [place] Rate: 105 P: 38 IA: 180 QRS: -10 QRSD: 128 T: 10 QT: 358 QTc: 477 Interpretive Statements SINUS TACHYCARDIA LEFTWARD AXIS RIGHT BUNDLE BRANCH BLOCK QRS(T) CONTOUR ABNORMALITY CONSISTENT WITH ANTEROLATERAL INFARCT AGE UNDETERMINED ABNORMAL ECG Electronically Signed On 04-22-2021 13:33:54 CDT by Kenrick Lacey
--- NOTE | 2021-04-20 16:36 | RAD ---
EXAM: Fluoroscopic guided nasogastric tube placement. HISTORY: Nasogastric tube placement. TECHNIQUE: Fluoroscopic imaging was performed during the placement of a nasogastric tube through the right naris into the distal gastric antrum. 2 fluoroscopic images were obtained. The total fluoroscop y time was 0.6 minutes. COMPARISON: CT dated 04/20/2021. IMPRESSION: Successful fluoroscopic guided placement of a nasogastric tube into the distal gastric an trum. Electronically signed by: Mindy Pereira MD (04/20/2021 4:33 PM) [id number]
--- NOTE | 2021-04-20 17:01 | RAD ---
One view abdomen HISTORY: NG tube placement One view abdomen was obtained The patient is rotated to the right. The enteric tube appears to have its tip in the distal thoracic esophagus. Views of the abdomen are somewhat underpenetrated but show formed stool scattered througho ut the colon. IMPRESSION: Enteric tubes has its tip in the distal thoracic esophagus. Electronically signed by: Prosper Bingham III, MD (04/20/2021 4:58 PM) [facility]
[2021-04-20] MEDS: PANTOPRAZOLE IV PUSH 40 MG VIAL. IVP SCH (17:10)
[2021-04-20 19:00] VITALS: BP 134/86
[2021-04-20] MEDS: LEVOTHYROXINE 75 MCG TABLET PO SCH (20:36)
[2021-04-20] MEDS ORDERED: NON FORMULARY ITEM (Amino Acids/Protein Hydrolys (Pro-Stat Liquid) 30 ML) PO SCH (21:00)
[2021-04-20 23:00] VITALS: BP 131/81
[2021-04-21 03:00] VITALS: BP 146/88
[2021-04-21 04:49] LABS: HEMATOCRIT 39.8 % (39.0-53.0); HEMOGLOBIN 13.4 g/dL (13.0-17.5); RED BLOOD COUNT 4.35 x10^6/uL (4.30-5.70); RED CELL DISTRIBUTION WIDTH 14.9 % (11.5-14.5); WHITE BLOOD COUNT 15.1 x10^3/uL (4.0-11.0)
[2021-04-21 05:07] LABS: CALCIUM 8.7 mg/dL (8.5-10.1); CREATININE 1.1 mg/dL (0.7-1.3); GFR 64.7; POTASSIUM 3.9 mmol/L (3.5-5.1)
[2021-04-21 07:02] LABS: GASTRIC OB PAT NEGATIVE (NEG)
[2021-04-21 07:30] VITALS: BP 150/75
[2021-04-21] MEDS: buPROPion XL 150 MG TAB.ER.24H. PO SCH (08:00)
--- NOTE | 2021-04-21 08:12 | PDOC ---
[employer] PROGRESS NOTE Date of Service DOS: DATE: 04/21/21 TIME: 08:11 Chief Complaint Chief Complaint Acute respiratory failure with hypoxia Aspiration pneumonia Parkinson's disease Dysphagia Wheelchair dependent Plan: Will continue treatment with aspiration ammonia with Rocephin and metronidazole Hemoglobin is stable at this time. If recurrence of coffee-ground emesis will test for occult blood. Supportive oxygen therapy as needed Will consult ST to evaluate and treat Hold home medications until seen by speech therapy Will provide with IV medications we can at this time FEN - NPO PPX - Heparin FULL CODE Dispo - inpatient for above Surrogate decision maker is Lizeth Parada History of Present Illness History of Present Illness Patient 80-year-old male past medical history Parkinson's disease, CKD, hypothyroidism, cognitive communication deficit, GERD, anxiety/depression, who presents from [facility] with concerns of 3 episodes of coffee-ground emesis yesterday. Per EMS report, he was 85% on room air. He does not require any oxygen at baseline. Upon arrival in the ED he was placed on 6 L of nasal cannula with improvement in O2 saturation. Labs admission showed WBC 14.0, hemoglobin 15.1, hematocrit 45.2, BUN 33, creatinine 1.2, CBG 183, lactic acid 2.0. Chest x-ray showed low lung volumes, basilar pulmonary infiltrates. CT abdomen/pelvis showed basilar pulmonary infiltrates, right worse than left, and mild colonic ileus seen that was previously. In the ED he was given clindamycin, Rocephin, and IV fluids. Admitted patient for further medical management with GI consultation. Hb dropped to 13.4. NGT placed with some blood suctioned < 500cc. He is c/o dry mouth, no real pain complaints. O2 92% on 4l/min supplemental O2. Vitals/I&O Vitals/I&O: Vital Signs Date Time Temp Pulse Resp B/P (MAP) Pulse Ox O2 Delivery O2 Flow Rate FiO2 04/21/21 03:00 99.6 98 18 146/88 (107) 94 Nasal Cannula 4.0 99.6 I & O 04/20/21 04/20/21 04/21/21 15:00 23:00 07:00 Intake Total 1050 ml 100 ml 100 ml Output Total 600 ml Balance 1050 ml 100 ml -500 ml Physical Exam Lungs: Clear Labs Labs: Laboratory Tests Test 04/20/21 08:22 04/20/21 08:24 04/20/21 11:05 04/20/21 12:24 SARS-CoV-2 RNA (MIKE) Negative (Negative) SARS-CoV-2 Antigen (Rapid) Negative (NEGATIVE) O2 Saturation 95 % (92-99) Arterial Blood pH 7.44 (7.35-7.45) Arterial Blood pCO2 at Patient Temp 37 mmHg (35-46) Arterial Blood pO2 at Patient Temp 81 mmHg (65-108) Arterial Blood HCO3 24 mmol/L (21-28) Arterial Blood Base Excess 1 mmol/L (-3-3) FiO2 44 Stool Occult Blood Positive (NEG) Glucose (Fingerstick) 183 mg/dL (70-99) Test 04/21/21 01:12 04/21/21 04:00 04/21/21 06:00 04/21/21 06:49 Glucose (Fingerstick) 119 mg/dL (70-99) 105 mg/dL (70-99) White Blood Count 15.1 x10^3/uL (4.0-11.0) Red Blood Count 4.35 x10^6/uL (4.30-5.70) Hemoglobin 13.4 g/dL (13.0-17.5) Hematocrit 39.8 % (39.0-53.0) Mean Corpuscular Volume 91 fL (79-100) Mean Corpuscular Hemoglobin 31 pg (25-35) Mean Corpuscular Hemoglobin Concent 34 g/dL (31-37) Red Cell Distribution Width 14.9 % (11.5-14.5) Platelet Count 177 x10^3/uL (140-400) Sodium Level 144 mmol/L (136-145) Potassium Level 3.9 mmol/L (3.5-5.1) Chloride Level 109 mmol/L (98-107) Carbon Dioxide Level 26 mmol/L (21-32) Anion Gap 9 (6-14) Blood Urea Nitrogen 48 mg/dL (8-26) Creatinine 1.1 mg/dL (0.7-1.3) Estimated GFR (Cockcroft-Gault) 64.7 Glucose Level 125 mg/dL (70-99) Calcium Level 8.7 mg/dL (8.5-10.1) Gastric Fluid Occult Blood Negative (NEG) Assessment and Plan Assessmemt and Plan Problems Medical Problems: (1) Aspiration pneumonia Status: Acute (2) Hypoxia Status: Acute (3) Ileus Status: Acute (4) Sepsis Status: Acute Comment Review of Relevant I have reviewed the following items heladio (where applicable) has been applied. Medications: Current Medications Medications (Trade) Dose Ordered Sig/Giselle Route PRN Reason Start Time Stop Time Status Last Admin Dose Admin Ceftriaxone Sodium (Rocephin) 1 gm Q24H IVP 04/20/21 10:00 04/20/21 10:57 Metronidazole 100 ml @ 100 mls/hr Q8HRS IV 04/20/21 11:00 04/21/21 05:54 Hydralazine HCl (Apresoline Inj) 10 mg PRN Q4HRS PRN IVP ELEVATED BP, SEE COMMENTS 04/20/21 11:45 04/20/21 11:56 Pantoprazole Sodium (PROTONIX VIAL for IV PUSH) 40 mg DAILYAC IVP 04/20/21 13:30 04/20/21 17:10 Justifications for Admission General Conditions Other justification for admit: Aspiration pneumonia Other Justification DEUCE FELDER MD Apr 21, 2021 08:12
[2021-04-21] MEDS: PANTOPRAZOLE IV PUSH 40 MG VIAL. IVP SCH (08:23)
[2021-04-21] MEDS: ASPIRIN CHEWABLE 81 MG TABLET. PO SCH (08:24)
[2021-04-21] MEDS: CITALOPRAM 20 MG TABLET. PO SCH (08:24)
[2021-04-21] MEDS: CARBIDOPA/LEVODOPA 25/100MG TABLET PO SCH ×3 (08:24→22:24)
[2021-04-21] MEDS: cefTRIAXone IV Push 1 GM VIAL. IVP SCH (10:39)
[2021-04-21 11:02] VITALS: BP 147/77
[2021-04-21] MEDS ORDERED: fentaNYL PF VIAL 100 MCG/2 ML VIAL IVP PRN (12:15)
[2021-04-21] MEDS ORDERED: SALIVA STIMULANT AGENT 44ML SPRAY BOTTLE. PO PRN (12:30)
[2021-04-21 14:52] VITALS: BP 165/82
[2021-04-21 19:48] VITALS: BP 165/97
[2021-04-21] MEDS: LEVOTHYROXINE 75 MCG TABLET PO SCH (21:00)
[2021-04-21 23:56] VITALS: BP 155/95
[2021-04-22 03:20] VITALS: BP 158/93
[2021-04-22 06:40] LABS: HEMATOCRIT 36.4 % (39.0-53.0); HEMOGLOBIN 12.2 g/dL (13.0-17.5); RED BLOOD COUNT 3.98 x10^6/uL (4.30-5.70); RED CELL DISTRIBUTION WIDTH 14.3 % (11.5-14.5); WHITE BLOOD COUNT 11.6 x10^3/uL (4.0-11.0)
[2021-04-22 07:00] VITALS: BP 136/94
[2021-04-22] MEDS: buPROPion XL 150 MG TAB.ER.24H. PO SCH (08:00)
[2021-04-22] MEDS: PANTOPRAZOLE IV PUSH 40 MG VIAL. IVP SCH (08:24)
[2021-04-22] MEDS: CARBIDOPA/LEVODOPA 25/100MG TABLET PO SCH ×2 (08:24→15:07)
[2021-04-22] MEDS: CITALOPRAM 20 MG TABLET. PO SCH (08:30)
[2021-04-22] MEDS: ASPIRIN CHEWABLE 81 MG TABLET. PO SCH (08:30)
[2021-04-22 11:00] VITALS: BP 169/99
[2021-04-22] MEDS: cefTRIAXone IV Push 1 GM VIAL. IVP SCH (12:27)
--- NOTE | 2021-04-22 12:44 | PDOC ---
[employer] PROGRESS NOTE Date of Service DOS: DATE: 04/22/21 TIME: 12:41 Chief Complaint Chief Complaint Acute respiratory failure with hypoxia Aspiration pneumonia Parkinson's disease Dysphagia Wheelchair dependent Plan: Will continue treatment with aspiration ammonia with Rocephin and metronidazole Hemoglobin is stable at this time. If recurrence of coffee-ground emesis will test for occult blood. Supportive oxygen therapy as needed Will consult ST to evaluate and treat Hold home medications until seen by speech therapy Will provide with IV medications we can at this time FEN - NPO PPX - Heparin FULL CODE Dispo - inpatient for above Surrogate decision maker is Lizeth Parada History of Present Illness History of Present Illness Patient 80-year-old male past medical history Parkinson's disease, CKD, hypothyroidism, cognitive communication deficit, GERD, anxiety/depression, who presents from [facility] with concerns of 3 episodes of coffee-ground emesis yesterday. Per EMS report, he was 85% on room air. He does not require any oxygen at baseline. Upon arrival in the ED he was placed on 6 L of nasal cannula with improvement in O2 saturation. Labs admission showed WBC 14.0, hemoglobin 15.1, hematocrit 45.2, BUN 33, creatinine 1.2, CBG 183, lactic acid 2.0. Chest x-ray showed low lung volumes, basilar pulmonary infiltrates. CT abdomen/pelvis showed basilar pulmonary infiltrates, right worse than left, and mild colonic ileus seen that was previously. In the ED he was given clindamycin, Rocephin, and IV fluids. Admitted patient for further medical management with GI consultation. 04/21: Hb dropped to 13.4. NGT placed with some blood suctioned < 500cc. He is c/o dry mouth, no real pain complaints. O2 92% on 4l/min supplemental O2. 04/22: Hb 12.2. No significant NG tube output. Had a formed stool soft. Having a dry mouth. More alert today. Having some neck and back pain. C/o being hot despite cool temperature. Afebrile. Minimal cough. Still requiring 4l/min O2 for 91% sats. Vitals/I&O Vitals/I&O: Vital Signs Date Time Temp Pulse Resp B/P (MAP) Pulse Ox O2 Delivery O2 Flow Rate FiO2 04/22/21 07:55 Nasal Cannula 2.0 10/31/21 07:00 98.4 91 17 136/94 (108) 97 98.4 I & O 04/21/21 04/21/21 04/22/21 15:00 23:00 07:00 Intake Total 0 ml Balance 0 ml Physical Exam Lungs: Clear Labs Labs: Laboratory Tests Test 04/21/21 17:24 04/22/21 00:55 04/22/21 05:50 04/22/21 07:09 Glucose (Fingerstick) 89 mg/dL (70-99) 83 mg/dL (70-99) 82 mg/dL (70-99) White Blood Count 11.6 x10^3/uL (4.0-11.0) Red Blood Count 3.98 x10^6/uL (4.30-5.70) Hemoglobin 12.2 g/dL (13.0-17.5) Hematocrit 36.4 % (39.0-53.0) Mean Corpuscular Volume 91 fL (79-100) Mean Corpuscular Hemoglobin 31 pg (25-35) Mean Corpuscular Hemoglobin Concent 34 g/dL (31-37) Red Cell Distribution Width 14.3 % (11.5-14.5) Platelet Count 167 x10^3/uL (140-400) Assessment and Plan Assessmemt and Plan Problems Medical Problems: (1) Aspiration pneumonia Status: Acute (2) Hypoxia Status: Acute (3) Ileus Status: Acute (4) Sepsis Status: Acute Comment Review of Relevant I have reviewed the following items heladio (where applicable) has been applied. Justifications for Admission General Conditions Other justification for admit: Aspiration pneumonia Other Justification DEUCE FELDER MD Apr 22, 2021 12:44
[2021-04-22] MEDS: AA 4.25 %/CALCIUM/LYTES/D5W 1,000 ML IV SCH (13:18)
[2021-04-22 15:00] VITALS: BP 141/94
[2021-04-22 19:00] VITALS: BP 155/92
[2021-04-22] MEDS: LEVOTHYROXINE 75 MCG TABLET PO SCH (21:00)
[2021-04-22 23:49] VITALS: BP 157/96
[2021-04-23] MEDS: CARBIDOPA/LEVODOPA 25/100MG TABLET PO SCH ×4 (00:10→20:23)
[2021-04-23 03:25] VITALS: BP 125/95
[2021-04-23 06:38] LABS: HEMATOCRIT 37.3 % (39.0-53.0); HEMOGLOBIN 12.5 g/dL (13.0-17.5); RED BLOOD COUNT 4.15 x10^6/uL (4.30-5.70); RED CELL DISTRIBUTION WIDTH 14.3 % (11.5-14.5); WHITE BLOOD COUNT 11.8 x10^3/uL (4.0-11.0)
[2021-04-23 07:00] VITALS: BP 162/92
[2021-04-23 07:09] LABS: ALBUMIN 2.9 g/dL (3.4-5.0); ALBUMIN/GLOBULIN RATIO 0.9 (1.0-1.7); CALCIUM 8.5 mg/dL (8.5-10.1); CREATININE 0.9 mg/dL (0.7-1.3); GFR 81.6; POTASSIUM 3.2 mmol/L (3.5-5.1); TOTAL BILIRUBIN 0.7 mg/dL (0.2-1.0); TOTAL PROTEIN 6.1 g/dL (6.4-8.2)
[2021-04-23] MEDS: buPROPion XL 150 MG TAB.ER.24H. PO SCH (08:00)
[2021-04-23] MEDS: CITALOPRAM 20 MG TABLET. PO SCH (08:18)
[2021-04-23] MEDS: ASPIRIN CHEWABLE 81 MG TABLET. PO SCH (08:18)
[2021-04-23 11:00] VITALS: BP 142/77
--- NOTE | 2021-04-23 11:28 | PDOC ---
[employer] PROGRESS NOTE Date of Service DOS: DATE: 04/23/21 TIME: 11:18 Chief Complaint Chief Complaint Acute respiratory failure with hypoxia Aspiration pneumonia Parkinson's disease Dysphagia Wheelchair dependent Hypoxia Ileus History of Present Illness History of Present Illness Patient 80-year-old male past medical history Parkinson's disease, CKD, hypothyroidism, cognitive communication deficit, GERD, anxiety/depression, who presents from [facility] with concerns of 3 episodes of coffee-ground emesis yesterday. Per EMS report, he was 85% on room air. He does not require any oxygen at baseline. Upon arrival in the ED he was placed on 6 L of nasal cannula with improvement in O2 saturation. Labs admission showed WBC 14.0, hemoglobin 15.1, hematocrit 45.2, BUN 33, creatinine 1.2, CBG 183, lactic acid 2.0. Chest x-ray showed low lung volumes, basilar pulmonary infiltrates. CT abdomen/pelvis showed basilar pulmonary infiltrates, right worse than left, and mild colonic ileus seen that was previously. In the ED he was given clindamycin, Rocephin, and IV fluids. Admitted patient for further medical management with GI consultation. 04/21: Hb dropped to 13.4. NGT placed with some blood suctioned < 500cc. He is c/o dry mouth, no real pain complaints. O2 92% on 4l/min supplemental O2. 04/22: Hb 12.2. No significant NG tube output. Had a formed stool soft. Having a dry mouth. More alert today. Having some neck and back pain. C/o being hot despite cool temperature. Afebrile. Minimal cough. Still requiring 4l/min O2 for 91% sats. 04/23 Patient seen and examined bedside. Chart reviewed. Case discussed with RN and case management. Vitals/I&O Vitals/I&O: Vital Signs Date Time Temp Pulse Resp B/P (MAP) Pulse Ox O2 Delivery O2 Flow Rate FiO2 04/23/21 07:00 98.7 83 18 162/92 (115) 94 Nasal Cannula 2.0 98.7 Physical Exam Heart: Regular rate, No murmurs Lungs: Clear Abdomen: Soft, No tenderness, No hepatosplenomegaly, No masses Extremities: No clubbing, No edema Skin: No rashes Labs Labs: Laboratory Tests Test 04/22/21 12:30 04/22/21 19:01 04/23/21 00:21 04/23/21 06:00 Glucose (Fingerstick) 77 mg/dL (70-99) 94 mg/dL (70-99) 100 mg/dL (70-99) White Blood Count 11.8 x10^3/uL (4.0-11.0) Red Blood Count 4.15 x10^6/uL (4.30-5.70) Hemoglobin 12.5 g/dL (13.0-17.5) Hematocrit 37.3 % (39.0-53.0) Mean Corpuscular Volume 90 fL (79-100) Mean Corpuscular Hemoglobin 30 pg (25-35) Mean Corpuscular Hemoglobin Concent 34 g/dL (31-37) Red Cell Distribution Width 14.3 % (11.5-14.5) Platelet Count 169 x10^3/uL (140-400) Sodium Level 144 mmol/L (136-145) Potassium Level 3.2 mmol/L (3.5-5.1) Chloride Level 109 mmol/L (98-107) Carbon Dioxide Level 25 mmol/L (21-32) Anion Gap 10 (6-14) Blood Urea Nitrogen 32 mg/dL (8-26) Creatinine 0.9 mg/dL (0.7-1.3) Estimated GFR (Cockcroft-Gault) 81.6 BUN/Creatinine Ratio 36 (6-20) Glucose Level 100 mg/dL (70-99) Calcium Level 8.5 mg/dL (8.5-10.1) Total Bilirubin 0.7 mg/dL (0.2-1.0) Aspartate Amino Transf (AST/SGOT) 20 U/L (15-37) Alanine Aminotransferase (ALT/SGPT) 9 U/L (16-63) Alkaline Phosphatase 60 U/L (46-116) Total Protein 6.1 g/dL (6.4-8.2) Albumin 2.9 g/dL (3.4-5.0) Albumin/Globulin Ratio 0.9 (1.0-1.7) Test 04/23/21 06:30 Glucose (Fingerstick) 109 mg/dL (70-99) Review of Systems Review of Systems: ROS negative unless noted in HPI. Assessment and Plan Assessmemt and Plan Assessment: Acute respiratory failure with hypoxia Aspiration pneumonia Parkinson's disease Dysphagia Wheelchair dependent Hypoxia Ileus Sepsis Plan: Trend labs Continue Clinimix Continue NG to LIS Continue Rocephin and Metronidazole If recurrence of coffee-ground emesis will test for occult blood. Supportive oxygen therapy as needed Will consult ST to evaluate and treat Hold home medications until seen by speech therapy Will provide with IV medications we can at this time Appreciate GI input FEN - NPO DVT PPX - Heparin FULL CODE Dispo - inpatient for above Comment Review of Relevant I have reviewed the following items heladio (where applicable) has been applied. Medications: Current Medications Medications (Trade) Dose Ordered Sig/Giselle Route PRN Reason Start Time Stop Time Status Last Admin Dose Admin Amino Acids/ Electrolytes/ Dextrose 1,000 ml @ 80 mls/hr [id number] IV 04/22/21 14:00 04/22/21 13:18 Justifications for Admission General Conditions Other justification for admit: Aspiration pneumonia Other Justification AMADO MORENO III DO Apr 23, 2021 11:28
--- NOTE | 2021-04-23 11:55 | PDOC ---
Date of Service: DATE: 04/23/21 TIME: 11:49 Objective: Objective: NG output not charted. Other notes suggest not much output and that he has stooled. On PPN. Vital Signs: Vital Signs Date Time Temp Pulse Resp B/P (MAP) Pulse Ox O2 Delivery O2 Flow Rate FiO2 04/23/21 11:00 98.0 64 18 142/77 (98) 97 Nasal Cannula 2.0 98.0 Labs: Laboratory Tests Test 04/22/21 12:30 04/22/21 19:01 04/23/21 00:21 04/23/21 06:00 Glucose (Fingerstick) 77 mg/dL 94 mg/dL 100 mg/dL White Blood Count 11.8 x10^3/uL Red Blood Count 4.15 x10^6/uL Hemoglobin 12.5 g/dL Hematocrit 37.3 % Mean Corpuscular Volume 90 fL Mean Corpuscular Hemoglobin 30 pg Mean Corpuscular Hemoglobin Concent 34 g/dL Red Cell Distribution Width 14.3 % Platelet Count 169 x10^3/uL Sodium Level 144 mmol/L Potassium Level 3.2 mmol/L Chloride Level 109 mmol/L Carbon Dioxide Level 25 mmol/L Anion Gap 10 Blood Urea Nitrogen 32 mg/dL Creatinine 0.9 mg/dL Estimated GFR (Cockcroft-Gault) 81.6 BUN/Creatinine Ratio 36 Glucose Level 100 mg/dL Calcium Level 8.5 mg/dL Total Bilirubin 0.7 mg/dL Aspartate Amino Transf (AST/SGOT) 20 U/L Alanine Aminotransferase (ALT/SGPT) 9 U/L Alkaline Phosphatase 60 U/L Total Protein 6.1 g/dL Albumin 2.9 g/dL Albumin/Globulin Ratio 0.9 Test 04/23/21 06:30 Glucose (Fingerstick) 109 mg/dL PE: GEN: chronically ill LUNGS: poor effort, NC 2L HEART: RRR ABD: soft, non-tender, a few gurgles, NGT darkish/bilious NEURO/PSYCH: lethargic but maybe slightly more alert compared to when I last saw A/P: Large hiatal hernia w/ vomiting, suspected aspiration pneumonia Constipation - now stooling H/o Parkinson's, torticollis, dementia, and dysphagia -- Will review w/ Dr. 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 Justicifation of Admission Dx: Justifications for Admission: Justification of Admission Dx: Yes TA BERRIOS Apr 23, 2021 11:55
[2021-04-23] MEDS ORDERED: POTASSIUM CL 40MEQ IN 0.9%NACL 1,000 ML IV SCH (12:00)
[2021-04-23] MEDS: cefTRIAXone IV Push 1 GM VIAL. IVP SCH (13:12)
[2021-04-23] MEDS: PANTOPRAZOLE IV PUSH 40 MG VIAL. IVP SCH (13:12)
[2021-04-23] MEDS: AA 4.25 %/CALCIUM/LYTES/D5W 1,000 ML IV SCH ×2 (13:12→15:00)
[2021-04-23 15:00] VITALS: BP 151/80
--- NOTE | 2021-04-23 15:52 | NUR ---
Wound/Ostomy Care Wound Type/Assessment: WC consult for left thigh wounds. Pt has intact blood blister to left lateral thigh and scabbed abrasion to posterior thigh. Cleansed and redressed wound. Treatment Recommendations/Plan: Skin prep and foam, change every 3 days. Education provided: Pt unable to retain teaching d/t mental status Offloading surface/device: Pt turned ot right side with heels floated on pillows Recommended Referrals/Tests: na Discharge Recommendations for dressings: see above
[2021-04-23 19:00] VITALS: BP 159/93
[2021-04-23] MEDS: LEVOTHYROXINE 75 MCG TABLET PO SCH (20:23)
[2021-04-23 23:17] VITALS: BP 143/90
[2021-04-24] MEDS: AA 4.25 %/CALCIUM/LYTES/D5W 1,000 ML IV SCH ×2 (00:46→16:00)
[2021-04-24 03:17] VITALS: BP 143/78
[2021-04-24] MEDS: PANTOPRAZOLE IV PUSH 40 MG VIAL. IVP SCH (04:49)
[2021-04-24 07:00] VITALS: BP 137/71
[2021-04-24 07:29] LABS: ALBUMIN 2.7 g/dL (3.4-5.0); ALBUMIN/GLOBULIN RATIO 0.9 (1.0-1.7); CREATININE 0.9 mg/dL (0.7-1.3); GFR 81.6; POTASSIUM 3.3 mmol/L (3.5-5.1); TOTAL BILIRUBIN 0.8 mg/dL (0.2-1.0); TOTAL PROTEIN 5.7 g/dL (6.4-8.2)
[2021-04-24 07:34] LABS: BASO % 0 % (0-3); EOS # 0.1 x10^3/uL (0.0-0.7); EOS % 1 % (0-3); HEMATOCRIT 35.6 % (39.0-53.0); LYMPH # 1.2 x10^3/uL (1.0-4.8); LYMPH % 14 % (24-48); MEAN CORPUSCULAR HEMOGLOBIN 30 pg (25-35); MEAN CORPUSCULAR HGB CONC 34 g/dL (31-37); MEAN CORPUSCULAR VOLUME 89 fL (79-100); MONO # 0.9 x10^3/uL (0.0-1.1); MONO % 10 % (0-9); NEUT # 6.6 x10^3/uL (1.8-7.7); NEUT % 75 % (31-73); PLATELET COUNT 163 x10^3/uL (140-400); RED BLOOD COUNT 3.99 x10^6/uL (4.30-5.70); RED CELL DISTRIBUTION WIDTH 14.2 % (11.5-14.5); WHITE BLOOD COUNT 8.7 x10^3/uL (4.0-11.0)
--- NOTE | 2021-04-24 10:31 | PDOC ---
Date of Service: DATE: 04/24/21 TIME: 10:26 Objective: Objective: D/w nurse - small stool, not much from NGT. Vital Signs: Vital Signs Date Time Temp Pulse Resp B/P (MAP) Pulse Ox O2 Delivery O2 Flow Rate FiO2 04/24/21 07:00 98.0 62 18 137/71 (93) 92 Nasal Cannula 2.0 98.0 Labs: Laboratory Tests Test 04/23/21 12:07 04/24/21 00:09 04/24/21 06:10 04/24/21 06:42 Glucose (Fingerstick) 100 mg/dL 94 mg/dL 86 mg/dL White Blood Count 8.7 x10^3/uL Red Blood Count 3.99 x10^6/uL Hemoglobin 12.0 g/dL Hematocrit 35.6 % Mean Corpuscular Volume 89 fL Mean Corpuscular Hemoglobin 30 pg Mean Corpuscular Hemoglobin Concent 34 g/dL Red Cell Distribution Width 14.2 % Platelet Count 163 x10^3/uL Neutrophils (%) (Auto) 75 % Lymphocytes (%) (Auto) 14 % Monocytes (%) (Auto) 10 % Eosinophils (%) (Auto) 1 % Basophils (%) (Auto) 0 % Neutrophils # (Auto) 6.6 x10^3/uL Lymphocytes # (Auto) 1.2 x10^3/uL Monocytes # (Auto) 0.9 x10^3/uL Eosinophils # (Auto) 0.1 x10^3/uL Basophils # (Auto) 0.0 x10^3/uL Sodium Level 141 mmol/L Potassium Level 3.3 mmol/L Chloride Level 108 mmol/L Carbon Dioxide Level 23 mmol/L Anion Gap 10 Blood Urea Nitrogen 30 mg/dL Creatinine 0.9 mg/dL Estimated GFR (Cockcroft-Gault) 81.6 BUN/Creatinine Ratio 33 Glucose Level 93 mg/dL Calcium Level 8.0 mg/dL Total Bilirubin 0.8 mg/dL Aspartate Amino Transf (AST/SGOT) 23 U/L Alanine Aminotransferase (ALT/SGPT) 12 U/L Alkaline Phosphatase 55 U/L Total Protein 5.7 g/dL Albumin 2.7 g/dL Albumin/Globulin Ratio 0.9 BLOOD CULTURE Preliminary NO GROWTH AFTER 4 DAYS PE: GEN: appears chronically ill, neck contractured to right LUNGS: clear, NC 2L HEART: RRR ABD: soft, non-tender, NG bilious NEURO/PSYCH: awake, speech difficult to understand A/P: Large hiatal hernia w/ vomiting, suspected aspiration pneumonia Constipation - stooling H/o Parkinson's, torticollis, dementia, and dysphagia -- Okay to remove NG tube and 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 PO PPI when eating, consider more aggressive constipation treatment long-term. Justicifation of Admission Dx: Justifications for Admission: Justification of Admission Dx: Yes TA BERRIOS Apr 24, 2021 10:31
--- NOTE | 2021-04-24 10:55 | NUR ---
SW following. Discussed with RN, pt from [facility], 2L, NPO - pt on clinimix. NG being removed today. COVID-19 negative. SW will continue to follow.
--- NOTE | 2021-04-24 10:58 | PDOC ---
[employer] PROGRESS NOTE Date of Service DOS: DATE: 04/24/21 TIME: 10:56 Chief Complaint Chief Complaint Acute respiratory failure with hypoxia Hiatal hernia Aspiration pneumonia Parkinson's disease Dysphagia Wheelchair dependent Hypoxia Ileus Sepsis History of Present Illness History of Present Illness Patient 80-year-old male past medical history Parkinson's disease, CKD, hypothyroidism, cognitive communication deficit, GERD, anxiety/depression, who presents from Medical [facility] with concerns of 3 episodes of coffee-ground emesis yesterday. Per EMS report, he was 85% on room air. He does not require any oxygen at baseline. Upon arrival in the ED he was placed on 6 L of nasal cannula with improvement in O2 saturation. Labs admission showed WBC 14.0, hemoglobin 15.1, hematocrit 45.2, BUN 33, creatinine 1.2, CBG 183, lactic acid 2.0. Chest x-ray showed low lung volumes, basilar pulmonary infiltrates. CT abdomen/pelvis showed basilar pulmonary infiltrates, right worse than left, and mild colonic ileus seen that was previously. In the ED he was given clindamycin, Rocephin, and IV fluids. Admitted patient for further medical management with GI consultation. 04/21: Hb dropped to 13.4. NGT placed with some blood suctioned < 500cc. He is c/o dry mouth, no real pain complaints. O2 92% on 4l/min supplemental O2. 04/22: Hb 12.2. No significant NG tube output. Had a formed stool soft. Having a dry mouth. More alert today. Having some neck and back pain. C/o being hot despite cool temperature. Afebrile. Minimal cough. Still requiring 4l/min O2 for 91% sats. 04/23 Patient seen and examined bedside. Chart reviewed. Case discussed with RN and case management. 04/24 Patient seen and examined bedside. Patient resting comfortably. Chart reviewed. Case discussed with RN and case management. Vitals/I&O Vitals/I&O: Vital Signs Date Time Temp Pulse Resp B/P (MAP) Pulse Ox O2 Delivery O2 Flow Rate FiO2 04/24/21 07:00 98.0 62 18 137/71 (93) 92 Nasal Cannula 2.0 98.0 I & O 04/23/21 04/23/21 04/24/21 15:00 23:00 07:00 Intake Total 0 ml Output Total 2 ml Balance -2 ml 0 ml Physical Exam Heart: Regular rate, No murmurs Lungs: Clear Abdomen: Soft, No tenderness, No hepatosplenomegaly, No masses Extremities: No clubbing, No edema Skin: No rashes Labs Labs: Laboratory Tests Test 04/23/21 12:07 04/24/21 00:09 04/24/21 06:10 04/24/21 06:42 Glucose (Fingerstick) 100 mg/dL (70-99) 94 mg/dL (70-99) 86 mg/dL (70-99) White Blood Count 8.7 x10^3/uL (4.0-11.0) Red Blood Count 3.99 x10^6/uL (4.30-5.70) Hemoglobin 12.0 g/dL (13.0-17.5) Hematocrit 35.6 % (39.0-53.0) Mean Corpuscular Volume 89 fL (79-100) Mean Corpuscular Hemoglobin 30 pg (25-35) Mean Corpuscular Hemoglobin Concent 34 g/dL (31-37) Red Cell Distribution Width 14.2 % (11.5-14.5) Platelet Count 163 x10^3/uL (140-400) Neutrophils (%) (Auto) 75 % (31-73) Lymphocytes (%) (Auto) 14 % (24-48) Monocytes (%) (Auto) 10 % (0-9) Eosinophils (%) (Auto) 1 % (0-3) Basophils (%) (Auto) 0 % (0-3) Neutrophils # (Auto) 6.6 x10^3/uL (1.8-7.7) Lymphocytes # (Auto) 1.2 x10^3/uL (1.0-4.8) Monocytes # (Auto) 0.9 x10^3/uL (0.0-1.1) Eosinophils # (Auto) 0.1 x10^3/uL (0.0-0.7) Basophils # (Auto) 0.0 x10^3/uL (0.0-0.2) Sodium Level 141 mmol/L (136-145) Potassium Level 3.3 mmol/L (3.5-5.1) Chloride Level 108 mmol/L (98-107) Carbon Dioxide Level 23 mmol/L (21-32) Anion Gap 10 (6-14) Blood Urea Nitrogen 30 mg/dL (8-26) Creatinine 0.9 mg/dL (0.7-1.3) Estimated GFR (Cockcroft-Gault) 81.6 BUN/Creatinine Ratio 33 (6-20) Glucose Level 93 mg/dL (70-99) Calcium Level 8.0 mg/dL (8.5-10.1) Total Bilirubin 0.8 mg/dL (0.2-1.0) Aspartate Amino Transf (AST/SGOT) 23 U/L (15-37) Alanine Aminotransferase (ALT/SGPT) 12 U/L (16-63) Alkaline Phosphatase 55 U/L (46-116) Total Protein 5.7 g/dL (6.4-8.2) Albumin 2.7 g/dL (3.4-5.0) Albumin/Globulin Ratio 0.9 (1.0-1.7) Review of Systems Review of Systems: ROS negative except as noted in HPI. Assessment and Plan Assessmemt and Plan Assessment: Acute respiratory failure with hypoxia Hiatal hernia Aspiration pneumonia Parkinson's disease Dysphagia Wheelchair dependent Hypoxia Ileus Sepsis Plan: Trend labs Continue Clinimix Continue NG to LIS Continue Rocephin and Metronidazole If recurrence of coffee-ground emesis will test for occult blood. Supportive oxygen therapy as needed Will consult ST to evaluate and treat Hold home medications until seen by speech therapy Will provide with IV medications we can at this time Appreciate GI input FEN - NPO DVT PPX - Heparin FULL CODE Dispo - inpatient for above Comment Review of Relevant I have reviewed the following items heladio (where applicable) has been applied. Justifications for Admission General Conditions Other justification for admit: Aspiration pneumonia Other Justification AMADO MORENO III DO Apr 24, 2021 10:58
[2021-04-24 11:00] VITALS: BP 177/103
[2021-04-24] MEDS ORDERED: POTASSIUM CL 40MEQ IN 0.9%NACL 1,000 ML IV ONE (11:00)
[2021-04-24] MEDS: buPROPion XL 150 MG TAB.ER.24H. PO SCH (13:05)
[2021-04-24] MEDS: CITALOPRAM 20 MG TABLET. PO SCH (13:05)
[2021-04-24] MEDS: ASPIRIN CHEWABLE 81 MG TABLET. PO SCH (13:05)
[2021-04-24] MEDS: CARBIDOPA/LEVODOPA 25/100MG TABLET PO SCH ×3 (13:05→21:14)
[2021-04-24] MEDS: cefTRIAXone IV Push 1 GM VIAL. IVP SCH (13:08)
[2021-04-24 15:00] VITALS: BP 139/82
[2021-04-24 19:00] VITALS: BP 120/53
[2021-04-24] MEDS: LEVOTHYROXINE 75 MCG TABLET PO SCH (21:14)
[2021-04-24 23:00] VITALS: BP 128/60
[2021-04-25 03:00] VITALS: BP 140/82
[2021-04-25] MEDS: AA 4.25 %/CALCIUM/LYTES/D5W 1,000 ML IV SCH ×2 (03:44→18:12)
[2021-04-25 04:43] LABS: BASO % 0 % (0-3); EOS # 0.1 x10^3/uL (0.0-0.7); EOS % 1 % (0-3); HEMATOCRIT 34.6 % (39.0-53.0); HEMOGLOBIN 11.7 g/dL (13.0-17.5); LYMPH # 1.3 x10^3/uL (1.0-4.8); LYMPH % 17 % (24-48); MEAN CORPUSCULAR HEMOGLOBIN 30 pg (25-35); MEAN CORPUSCULAR HGB CONC 34 g/dL (31-37); MEAN CORPUSCULAR VOLUME 90 fL (79-100); MONO # 0.7 x10^3/uL (0.0-1.1); MONO % 9 % (0-9); NEUT # 5.6 x10^3/uL (1.8-7.7); NEUT % 73 % (31-73); PLATELET COUNT 156 x10^3/uL (140-400); RED BLOOD COUNT 3.86 x10^6/uL (4.30-5.70); RED CELL DISTRIBUTION WIDTH 14.1 % (11.5-14.5); WHITE BLOOD COUNT 7.7 x10^3/uL (4.0-11.0)
[2021-04-25 05:17] LABS: ALBUMIN 2.7 g/dL (3.4-5.0); ALBUMIN/GLOBULIN RATIO 0.8 (1.0-1.7); CALCIUM 7.8 mg/dL (8.5-10.1); CREATININE 0.8 mg/dL (0.7-1.3); GFR 93.5; POTASSIUM 3.7 mmol/L (3.5-5.1); TOTAL BILIRUBIN 0.5 mg/dL (0.2-1.0); TOTAL PROTEIN 5.9 g/dL (6.4-8.2)
[2021-04-25 07:00] VITALS: BP 115/70
[2021-04-25] MEDS: PANTOPRAZOLE IV PUSH 40 MG VIAL. IVP SCH (08:05)
--- NOTE | 2021-04-25 08:15 | PDOC ---
[employer] PROGRESS NOTE Date of Service DOS: DATE: 04/25/21 TIME: 08:13 Chief Complaint Chief Complaint Acute respiratory failure with hypoxia Hiatal hernia Aspiration pneumonia Parkinson's disease Dysphagia Wheelchair dependent Hypoxia Ileus Sepsis History of Present Illness History of Present Illness Patient 80-year-old male past medical history Parkinson's disease, CKD, hypothyroidism, cognitive communication deficit, GERD, anxiety/depression, who presents from [facility] with concerns of 3 episodes of coffee-ground emesis yesterday. Per EMS report, he was 85% on room air. He does not require any oxygen at baseline. Upon arrival in the ED he was placed on 6 L of nasal cannula with improvement in O2 saturation. Labs admission showed WBC 14.0, hemoglobin 15.1, hematocrit 45.2, BUN 33, creatinine 1.2, CBG 183, lactic acid 2.0. Chest x-ray showed low lung volumes, basilar pulmonary infiltrates. CT abdomen/pelvis showed basilar pulmonary infiltrates, right worse than left, and mild colonic ileus seen that was previously. In the ED he was given clindamycin, Rocephin, and IV fluids. Admitted patient for further medical management with GI consultation. 04/21: Hb dropped to 13.4. NGT placed with some blood suctioned < 500cc. He is c/o dry mouth, no real pain complaints. O2 92% on 4l/min supplemental O2. 04/22: Hb 12.2. No significant NG tube output. Had a formed stool soft. Having a dry mouth. More alert today. Having some neck and back pain. C/o being hot despite cool temperature. Afebrile. Minimal cough. Still requiring 4l/min O2 for 91% sats. 04/23 Patient seen and examined bedside. Chart reviewed. Case discussed with RN and case management. 04/24 Patient seen and examined bedside. Patient resting comfortably. Chart reviewed. Case discussed with RN and case management. 04/25 Patient seen and examined bedside. Patient awake but not very talkative.. Chart reviewed. Case discussed with RN and case management. Vitals/I&O Vitals/I&O: Vital Signs Date Time Temp Pulse Resp B/P (MAP) Pulse Ox O2 Delivery O2 Flow Rate FiO2 04/25/21 03:00 99.7 64 18 140/82 (101) 96 Nasal Cannula 2.0 99.7 I & O 04/24/21 04/24/21 04/25/21 15:00 23:00 07:00 Intake Total 300 ml 0 ml Output Total 300 ml Balance 0 ml 0 ml Physical Exam Heart: Regular rate, No murmurs Lungs: Clear Abdomen: Soft, No tenderness, No hepatosplenomegaly, No masses Extremities: No clubbing, No edema Skin: No rashes Labs Labs: Laboratory Tests Test 04/24/21 12:15 04/25/21 02:55 Glucose (Fingerstick) 156 mg/dL (70-99) White Blood Count 7.7 x10^3/uL (4.0-11.0) Red Blood Count 3.86 x10^6/uL (4.30-5.70) Hemoglobin 11.7 g/dL (13.0-17.5) Hematocrit 34.6 % (39.0-53.0) Mean Corpuscular Volume 90 fL (79-100) Mean Corpuscular Hemoglobin 30 pg (25-35) Mean Corpuscular Hemoglobin Concent 34 g/dL (31-37) Red Cell Distribution Width 14.1 % (11.5-14.5) Platelet Count 156 x10^3/uL (140-400) Neutrophils (%) (Auto) 73 % (31-73) Lymphocytes (%) (Auto) 17 % (24-48) Monocytes (%) (Auto) 9 % (0-9) Eosinophils (%) (Auto) 1 % (0-3) Basophils (%) (Auto) 0 % (0-3) Neutrophils # (Auto) 5.6 x10^3/uL (1.8-7.7) Lymphocytes # (Auto) 1.3 x10^3/uL (1.0-4.8) Monocytes # (Auto) 0.7 x10^3/uL (0.0-1.1) Eosinophils # (Auto) 0.1 x10^3/uL (0.0-0.7) Basophils # (Auto) 0.0 x10^3/uL (0.0-0.2) Sodium Level 142 mmol/L (136-145) Potassium Level 3.7 mmol/L (3.5-5.1) Chloride Level 109 mmol/L (98-107) Carbon Dioxide Level 24 mmol/L (21-32) Anion Gap 9 (6-14) Blood Urea Nitrogen 27 mg/dL (8-26) Creatinine 0.8 mg/dL (0.7-1.3) Estimated GFR (Cockcroft-Gault) 93.5 BUN/Creatinine Ratio 34 (6-20) Glucose Level 77 mg/dL (70-99) Calcium Level 7.8 mg/dL (8.5-10.1) Total Bilirubin 0.5 mg/dL (0.2-1.0) Aspartate Amino Transf (AST/SGOT) 20 U/L (15-37) Alanine Aminotransferase (ALT/SGPT) 8 U/L (16-63) Alkaline Phosphatase 56 U/L (46-116) Total Protein 5.9 g/dL (6.4-8.2) Albumin 2.7 g/dL (3.4-5.0) Albumin/Globulin Ratio 0.8 (1.0-1.7) Review of Systems Review of Systems: ROS negative except as noted in HPI. Assessment and Plan Assessmemt and Plan Assessment: Acute respiratory failure with hypoxia Hiatal hernia Aspiration pneumonia Parkinson's disease Dysphagia Wheelchair dependent Hypoxia Ileus Sepsis Plan: Trend labs Continue Clinimix Continue NG to LIS Continue Rocephin and Metronidazole If recurrence of coffee-ground emesis will test for occult blood. Supportive oxygen therapy as needed Will consult ST to evaluate and treat Hold home medications until seen by speech therapy Will provide with IV medications we can at this time Appreciate GI input FEN - NPO DVT PPX - Heparin FULL CODE Dispo - inpatient for above Comment Review of Relevant I have reviewed the following items heladio (where applicable) has been applied. Medications: Current Medications Medications (Trade) Dose Ordered Sig/Giselle Route PRN Reason Start Time Stop Time Status Last Admin Dose Admin Potassium Chloride/Sodium Chloride 1,000 ml @ 75 mls/hr [id number] ONCE IV 04/24/21 11:00 04/25/21 00:19 DC 04/24/21 13:07 Justifications for Admission General Conditions Other justification for admit: Aspiration pneumonia Other Justification AMADO MORENO III DO Apr 25, 2021 08:15
[2021-04-25] MEDS: CITALOPRAM 20 MG TABLET. PO SCH (09:00)
[2021-04-25] MEDS: buPROPion XL 150 MG TAB.ER.24H. PO SCH (09:36)
[2021-04-25] MEDS: ASPIRIN CHEWABLE 81 MG TABLET. PO SCH (09:36)
[2021-04-25] MEDS: CARBIDOPA/LEVODOPA 25/100MG TABLET PO SCH ×3 (09:36→22:04)
[2021-04-25] MEDS: cefTRIAXone IV Push 1 GM VIAL. IVP SCH (09:37)
--- NOTE | 2021-04-25 10:21 | PDOC ---
Date of Service: DATE: 04/25/21 TIME: 10:17 Subjective: Subjective: "Hi." Objective: Objective: Nurses present - tolerating dysphagia diet, possible DC today. Vital Signs: Vital Signs Date Time Temp Pulse Resp B/P (MAP) Pulse Ox O2 Delivery O2 Flow Rate FiO2 04/25/21 08:00 Nasal Cannula 2.0 04/25/21 07:00 98.9 63 18 115/70 (85) 96 98.9 Labs: Laboratory Tests Test 04/24/21 12:15 04/25/21 02:55 Glucose (Fingerstick) 156 mg/dL White Blood Count 7.7 x10^3/uL Red Blood Count 3.86 x10^6/uL Hemoglobin 11.7 g/dL Hematocrit 34.6 % Mean Corpuscular Volume 90 fL Mean Corpuscular Hemoglobin 30 pg Mean Corpuscular Hemoglobin Concent 34 g/dL Red Cell Distribution Width 14.1 % Platelet Count 156 x10^3/uL Neutrophils (%) (Auto) 73 % Lymphocytes (%) (Auto) 17 % Monocytes (%) (Auto) 9 % Eosinophils (%) (Auto) 1 % Basophils (%) (Auto) 0 % Neutrophils # (Auto) 5.6 x10^3/uL Lymphocytes # (Auto) 1.3 x10^3/uL Monocytes # (Auto) 0.7 x10^3/uL Eosinophils # (Auto) 0.1 x10^3/uL Basophils # (Auto) 0.0 x10^3/uL Sodium Level 142 mmol/L Potassium Level 3.7 mmol/L Chloride Level 109 mmol/L Carbon Dioxide Level 24 mmol/L Anion Gap 9 Blood Urea Nitrogen 27 mg/dL Creatinine 0.8 mg/dL Estimated GFR (Cockcroft-Gault) 93.5 BUN/Creatinine Ratio 34 Glucose Level 77 mg/dL Calcium Level 7.8 mg/dL Total Bilirubin 0.5 mg/dL Aspartate Amino Transf (AST/SGOT) 20 U/L Alanine Aminotransferase (ALT/SGPT) 8 U/L Alkaline Phosphatase 56 U/L Total Protein 5.9 g/dL Albumin 2.7 g/dL Albumin/Globulin Ratio 0.8 BLOOD CULTURE Final NO GROWTH AFTER 5 DAYS Imaging: [employer] Bedside Swallow Eval Bedside swallow eval completed. Minimal pt participation in eval measures. See full rpt in interventions. IMPRESSIONS: Delayed oropharyngeal swallow w/oral delay evident. Pt edentulous and solids w/prolonged mastication; pt also falling asleep w/prolonged mastication. Puree and honey thick liquid appeared safe, and generally efficient. May be able to advance to thin liquid in near future but pt was not fully participative at end of study when thin liquids being assessed and difficult to r/o subtle s/s aspiration. Unclear if intake will meet nutritional needs. Hiatal hernia may represent a risk of aspiration. Would encourage upright position following meals per GI. Videoswallow is not feasible in this pt d/t posture (head tilt R to nearly shoulder) would be prohibitive to adequate view of oral and pharyngeal swallow. Therefore, only clinical assessment and f/u indicated. RECOMMENDATIONS: Dysphagia I w/honey thick liquids. Precautions as posted. Diet orders entered. SCOOTER Murillo. PE: GEN: NAD, chronically ill, contractures LUNGS: diminished anteriorly HEART: RRR ABD: S/ND/NT NEURO/PSYCH: awake and alert, can't understand speech A/P: Large hiatal hernia w/ vomiting (now tolerating diet) Suspected aspiration pneumonia H/o Parkinson's, torticollis, dementia, dysphagia, and cosntipation -- Tolerating dysphagia diet. Change to PO PPI, treat chronic constipation. DC per primary. Justicifation of Admission Dx: Justifications for Admission: Justification of Admission Dx: Yes TA BERRIOS Apr 25, 2021 10:21
[2021-04-25 11:00] VITALS: BP 129/65
--- NOTE | 2021-04-25 11:14 | NUR ---
SW following. Discussed with RN, SW faxed updates to [facility], awaiting confirmation of discharge and decision about abx. [facility] notified of potential discharge. SW will continue to follow.
[2021-04-25] MEDS: POLYETHYLENE GLYCOL 3350 17 GM PACKET. PO SCH (11:36)
[2021-04-25 15:00] VITALS: BP 157/90
[2021-04-25 19:00] VITALS: BP 158/85
[2021-04-25] MEDS: LACTOBACILLUS RHAMNOSUS GG 1 CAPSULE. PO SCH (22:04)
[2021-04-25] MEDS: LEVOTHYROXINE 75 MCG TABLET PO SCH (22:04)
[2021-04-25 23:00] VITALS: BP 145/80
[2021-04-26 03:00] VITALS: BP 146/82
[2021-04-26] MEDS: AA 4.25 %/CALCIUM/LYTES/D5W 1,000 ML IV SCH (06:02)
[2021-04-26 07:00] VITALS: BP 125/83
[2021-04-26] MEDS ORDERED: PANTOPRAZOLE 40 MG TABLET.DR. PO SCH (07:30)
[2021-04-26 07:34] LABS: BASO % 0 % (0-3); EOS # 0.2 x10^3/uL (0.0-0.7); EOS % 3 % (0-3); HEMOGLOBIN 11.9 g/dL (13.0-17.5); LYMPH # 1.2 x10^3/uL (1.0-4.8); LYMPH % 15 % (24-48); MEAN CORPUSCULAR HEMOGLOBIN 30 pg (25-35); MEAN CORPUSCULAR HGB CONC 34 g/dL (31-37); MEAN CORPUSCULAR VOLUME 89 fL (79-100); MONO # 0.9 x10^3/uL (0.0-1.1); MONO % 10 % (0-9); NEUT # 6.1 x10^3/uL (1.8-7.7); NEUT % 72 % (31-73); PLATELET COUNT 184 x10^3/uL (140-400); RED BLOOD COUNT 3.93 x10^6/uL (4.30-5.70); WHITE BLOOD COUNT 8.5 x10^3/uL (4.0-11.0)
[2021-04-26] MEDS: buPROPion XL 150 MG TAB.ER.24H. PO SCH (07:48)
[2021-04-26 08:25] LABS: ALBUMIN 2.8 g/dL (3.4-5.0); ALBUMIN/GLOBULIN RATIO 0.9 (1.0-1.7); CREATININE 0.7 mg/dL (0.7-1.3); GFR 109.1; POTASSIUM 4.1 mmol/L (3.5-5.1); TOTAL BILIRUBIN 0.5 mg/dL (0.2-1.0); TOTAL PROTEIN 5.8 g/dL (6.4-8.2)
--- NOTE | 2021-04-26 09:22 | PDOC ---
Date of Service: DATE: 04/26/21 TIME: 09:19 Objective: Objective: D/w nurse - was told he doesn't eat much but not sure what baseline is, still on PPN, possible DC today. Vital Signs: Vital Signs Date Time Temp Pulse Resp B/P (MAP) Pulse Ox O2 Delivery O2 Flow Rate FiO2 04/26/21 08:07 Nasal Cannula 2.0 04/26/21 07:00 96.8 65 18 125/83 (97) 97 96.8 Labs: Laboratory Tests Test 04/26/21 06:05 White Blood Count 8.5 x10^3/uL Red Blood Count 3.93 x10^6/uL Hemoglobin 11.9 g/dL Hematocrit 35.0 % Mean Corpuscular Volume 89 fL Mean Corpuscular Hemoglobin 30 pg Mean Corpuscular Hemoglobin Concent 34 g/dL Red Cell Distribution Width 14.0 % Platelet Count 184 x10^3/uL Neutrophils (%) (Auto) 72 % Lymphocytes (%) (Auto) 15 % Monocytes (%) (Auto) 10 % Eosinophils (%) (Auto) 3 % Basophils (%) (Auto) 0 % Neutrophils # (Auto) 6.1 x10^3/uL Lymphocytes # (Auto) 1.2 x10^3/uL Monocytes # (Auto) 0.9 x10^3/uL Eosinophils # (Auto) 0.2 x10^3/uL Basophils # (Auto) 0.0 x10^3/uL Sodium Level 138 mmol/L Potassium Level 4.1 mmol/L Chloride Level 105 mmol/L Carbon Dioxide Level 26 mmol/L Anion Gap 7 Blood Urea Nitrogen 23 mg/dL Creatinine 0.7 mg/dL Estimated GFR (Cockcroft-Gault) 109.1 BUN/Creatinine Ratio 33 Glucose Level 96 mg/dL Calcium Level 8.0 mg/dL Total Bilirubin 0.5 mg/dL Aspartate Amino Transf (AST/SGOT) 17 U/L Alanine Aminotransferase (ALT/SGPT) 8 U/L Alkaline Phosphatase 55 U/L Total Protein 5.8 g/dL Albumin 2.8 g/dL Albumin/Globulin Ratio 0.9 PE: GEN: NAD - sleeping LUNGS: clear, room air HEART: RRR ABD: soft, non-distended NEURO/PSYCH: he did not awaken during exam A/P: Aspiration pneumonia, large hiatal hernia H/o Parkinson's, torticollis, dementia, dysphagia, and constipation - eating (dysphagia diet) and stooling -- DC per primary. Justicifation of Admission Dx: Justifications for Admission: Justification of Admission Dx: Yes TA BERRIOS Apr 26, 2021 09:22
[2021-04-26] MEDS: POLYETHYLENE GLYCOL 3350 17 GM PACKET. PO SCH (09:56)
[2021-04-26] MEDS: CITALOPRAM 20 MG TABLET. PO SCH (09:56)
[2021-04-26] MEDS: CARBIDOPA/LEVODOPA 25/100MG TABLET PO SCH ×2 (09:56→14:21)
[2021-04-26] MEDS: LACTOBACILLUS RHAMNOSUS GG 1 CAPSULE. PO SCH (09:56)
[2021-04-26] MEDS: ASPIRIN CHEWABLE 81 MG TABLET. PO SCH (09:56)
[2021-04-26] MEDS: cefTRIAXone IV Push 1 GM VIAL. IVP SCH (10:15)
--- NOTE | 2021-04-26 10:39 | NUR ---
ALDO following. Discussed with RN, ALDO spoke with Dr. Parks - highly likely pt will be ready to discharge back to [facility] today. ALDO notified [facility] of likely discharge. Awaiting discharge orders and transportation time from [facility]. ALDO will continue to follow. Addendum: 04/26/21 at 1448 by MERYL CARLSON Discharge orders faxed to [facility]. Awaiting transportation time.
[2021-04-26 11:00] VITALS: BP 141/87
--- NOTE | 2021-04-26 11:24 | PDOC ---
[employer] PROGRESS NOTE Date of Service DOS: DATE: 04/26/21 TIME: 11:22 Chief Complaint Chief Complaint Acute respiratory failure with hypoxia Hiatal hernia Aspiration pneumonia Parkinson's disease Dysphagia Wheelchair dependent Hypoxia Ileus Sepsis History of Present Illness History of Present Illness 04/26/2021 Patient seen and examined He seems to be at his baseline Discussed with case management Discussed with RN Chart reviewed I plan to change him to p.o. antibiotics and discharge back to his long-term care facility later today Patient 80-year-old male past medical history Parkinson's disease, CKD, hypothyroidism, cognitive communication deficit, GERD, anxiety/depression, who presents from [facility] with concerns of 3 episodes of coffee-ground emesis yesterday. Per EMS report, he was 85% on room air. He does not require any oxygen at baseline. Upon arrival in the ED he was placed on 6 L of nasal cannula with improvement in O2 saturation. Labs admission showed WBC 14.0, hemoglobin 15.1, hematocrit 45.2, BUN 33, creatinine 1.2, CBG 183, lactic acid 2.0. Chest x-ray showed low lung volumes, basilar pulmonary infiltrates. CT abdomen/pelvis showed basilar pulmonary infiltrates, right worse than left, and mild colonic ileus seen that was previously. In the ED he was given clindamycin, Rocephin, and IV fluids. Admitted patient for further medical management with GI consultation. 04/21: Hb dropped to 13.4. NGT placed with some blood suctioned < 500cc. He is c/o dry mouth, no real pain complaints. O2 92% on 4l/min supplemental O2. 04/22: Hb 12.2. No significant NG tube output. Had a formed stool soft. Having a dry mouth. More alert today. Having some neck and back pain. C/o being hot despite cool temperature. Afebrile. Minimal cough. Still requiring 4l/min O2 for 91% sats. 04/23 Patient seen and examined bedside. Chart reviewed. Case discussed with RN and case management. 04/24 Patient seen and examined bedside. Patient resting comfortably. Chart reviewed. Case discussed with RN and case management. 04/25 Patient seen and examined bedside. Patient awake but not very talkative.. Chart reviewed. Case discussed with RN and case management. Vitals/I&O Vitals/I&O: Vital Signs Date Time Temp Pulse Resp B/P (MAP) Pulse Ox O2 Delivery O2 Flow Rate FiO2 04/26/21 11:00 99.1 64 17 141/87 (105) 98 Nasal Cannula 2.0 99.1 I & O 04/25/21 04/25/21 04/26/21 15:00 23:00 07:00 Intake Total 0 ml Balance 0 ml Physical Exam General: No acute distress, Other (Nonverbal) Heart: Regular rate, No murmurs Lungs: Clear Abdomen: Soft, No tenderness, No hepatosplenomegaly, No masses Extremities: No clubbing, No edema Skin: No rashes Labs Labs: Laboratory Tests Test 04/26/21 06:05 White Blood Count 8.5 x10^3/uL (4.0-11.0) Red Blood Count 3.93 x10^6/uL (4.30-5.70) Hemoglobin 11.9 g/dL (13.0-17.5) Hematocrit 35.0 % (39.0-53.0) Mean Corpuscular Volume 89 fL (79-100) Mean Corpuscular Hemoglobin 30 pg (25-35) Mean Corpuscular Hemoglobin Concent 34 g/dL (31-37) Red Cell Distribution Width 14.0 % (11.5-14.5) Platelet Count 184 x10^3/uL (140-400) Neutrophils (%) (Auto) 72 % (31-73) Lymphocytes (%) (Auto) 15 % (24-48) Monocytes (%) (Auto) 10 % (0-9) Eosinophils (%) (Auto) 3 % (0-3) Basophils (%) (Auto) 0 % (0-3) Neutrophils # (Auto) 6.1 x10^3/uL (1.8-7.7) Lymphocytes # (Auto) 1.2 x10^3/uL (1.0-4.8) Monocytes # (Auto) 0.9 x10^3/uL (0.0-1.1) Eosinophils # (Auto) 0.2 x10^3/uL (0.0-0.7) Basophils # (Auto) 0.0 x10^3/uL (0.0-0.2) Sodium Level 138 mmol/L (136-145) Potassium Level 4.1 mmol/L (3.5-5.1) Chloride Level 105 mmol/L (98-107) Carbon Dioxide Level 26 mmol/L (21-32) Anion Gap 7 (6-14) Blood Urea Nitrogen 23 mg/dL (8-26) Creatinine 0.7 mg/dL (0.7-1.3) Estimated GFR (Cockcroft-Gault) 109.1 BUN/Creatinine Ratio 33 (6-20) Glucose Level 96 mg/dL (70-99) Calcium Level 8.0 mg/dL (8.5-10.1) Total Bilirubin 0.5 mg/dL (0.2-1.0) Aspartate Amino Transf (AST/SGOT) 17 U/L (15-37) Alanine Aminotransferase (ALT/SGPT) 8 U/L (16-63) Alkaline Phosphatase 55 U/L (46-116) Total Protein 5.8 g/dL (6.4-8.2) Albumin 2.8 g/dL (3.4-5.0) Albumin/Globulin Ratio 0.9 (1.0-1.7) Assessment and Plan Assessmemt and Plan Problems Medical Problems: (1) Aspiration pneumonia Status: Acute (2) Hypoxia Status: Acute (3) Ileus Status: Acute (4) Sepsis Status: Acute Resolving acute respiratory failure with hypoxia Hiatal hernia Aspiration pneumonia Parkinson's disease Dysphagia Wheelchair dependent Hypoxia Ileus Sepsis Plan: Probable discharge back to his long-term care facility later today on p.o. antibiotics, for now continue the following; Trend labs Continue Clinimix Continue Rocephin and Metronidazole Will provide with IV medications we can at this time Appreciate GI input FEN - NPO DVT PPX - Heparin FULL CODE Discharge back to his [facility] later today if he can be arranged Comment Review of Relevant I have reviewed the following items heladio (where applicable) has been applied. Medications: Current Medications Medications (Trade) Dose Ordered Sig/Giselle Route PRN Reason Start Time Stop Time Status Last Admin Dose Admin Pantoprazole Sodium (Protonix) 40 mg DAILYAC PO 04/26/21 07:30 04/26/21 07:48 Lactobacillus Rhamnosus (Culturelle) 1 cap BID PO 04/25/21 21:00 04/26/21 09:56 Justifications for Admission General Conditions Other justification for admit: Aspiration pneumonia Other Justification AMADO MORENO III DO Apr 26, 2021 11:24
[2021-04-26] MEDS ORDERED: METR375C PO (11:27)
--- NOTE | 2021-04-26 11:27 | SNU/HH DC ---
DISCHARGE ORDERS DISCHARGE INFORMATION: FINAL DIAGNOSIS Problems Medical Problems: (1) Aspiration pneumonia Status: Acute (2) Hypoxia Status: Acute (3) Ileus Status: Acute (4) Sepsis Status: Acute CONDITION ON DISCHARGE: Stable CODE STATUS: Code Status: Full CUSTODIAL: SNF STAY <30 DAYS: No HOSPICE: HOSPICE: No HOSPICE EVAL & TREAT: No LTAC: ADMIT TO LTAC: No POST DISCHARGE ORDERS: ACTIVITY ORDERS: Resume previous activity WEIGHT BEARING STATUS: As tolerated DIET AFTER DISCHARGE: Regular CHECKS AFTER DISCHARGE: CHECKS AFTER DISCHARGE: Check blood press - daily, Check your Temp as needed TREATMENT/EQUIPMENT ORDERS: RESPIRATORY EQUIPMENT NEEDED: Oxygen DISCHARGE MEDICATIONS: Home Meds Active Scripts Lactobacillus Rhamnosus Gg (CULTURELLE) 1 Each Cap.sprink, 1 CAP PO BID for Pneumonia for 14 Days, #28 CAP Prov:DEUCE FELDER MD 03/26/20 Pantoprazole Sodium (PANTOPRAZOLE SODIUM ) 40 Mg Tablet.dr, 40 MG PO DAILYAC for GERD for 14 Days, #14 TAB.SR Prov:DEUCE FELDER MD 03/26/20 Psyllium Husk/Aspartame (METAMUCIL FIBER SINGLES PACKET) 3.4 Gm Powd.pack, 1 PKT PO DAILY16 for Constipation for 30 Days, #30 PKT 11 Refills Prov:DEUCE FELDER MD 03/26/20 Reported Medications Acetaminophen (ACETAMINOPHEN) 500 Mg Tablet, 1 TAB PO BID PRN for pain or fever for 30 Days, #60 TAB 0 Refills 03/22/20 Sennosides (SENNA LAXATIVE) 8.6 Mg Tablet, 8.6 MG PO HS for constipation, TAB 03/22/20 Amino Acids/Protein Hydrolys (PRO-STAT LIQUID) 30 Ml Liquid.pkt, 30 ML PO BID for wound supplement, PKT 03/22/20 Potassium Chloride (Klor-Con 10) 10 Meq Tablet.er, 1 TAB PO DAILY for hypokalemia for 30 Days, #30 TAB 0 Refills 03/22/20 Ketoconazole (NIZORAL) 120 Ml Shampoo, 120 ML TP TuSa for at bedtime skin disorder, EACH 03/22/20 Multivitamin (MULTI VITAMIN DAILY) 1 Each Tablet, 1 TAB PO DAILY for RD recommendation for 30 Days, #30 TAB 0 Refills 03/22/20 Polyethylene Glycol 3350 (MIRALAX) 17 Gm Powd.pack, 1 PACKET PO DAILY for constipation for 2 Days, #2 PACKET 0 Refills dissolve in water 03/22/20 Lorazepam (ATIVAN) 0.5 Mg Tablet, 0.5 MG PO HS for anxiety, TAB 03/22/20 Escitalopram Oxalate (ESCITALOPRAM OXALATE) 10 Mg Tablet, 1 TAB PO DAILY for depression, #30 TAB 3 Refills 03/22/20 Levothyroxine Sodium (LEVOTHYROXINE SODIUM) 75 Mcg Tablet, 1 TAB PO HS for hypothyroid, #30 TAB 5 Refills 03/22/20 Dimethicone (CAVILON DURABLE BARRIER) 92 Gm Cream..g., 92 GM TP BID for R 5th metatarsal, EACH 03/22/20 Carbidopa/Levodopa (CARBIDOPA-LEVO 25-100 MG ODT) 1 Each Tab.rapdis, 1 EACH PO TID for parkinsons, TAB 03/22/20 Bupropion Hcl (BUPROPION XL) 150 Mg Tab.er.24h, 1 TAB PO DAILYWBKFT for depressive disorder, #30 TAB 2 Refills 03/22/20 Menthol (BIOFREEZE) 118 Ml Gel..ml., 1 MORENA TP TID for right neck/shoulder pain for 10 Days, #118 ML 0 Refills 03/22/20 Baclofen (BACLOFEN) 20 Mg Tablet, 1 TAB PO TID for idiopathic scoliosis, #90 TAB 2 Refills 03/22/20 Aspirin (ASPIRIN) 81 Mg Tab.chew, 1 TAB PO DAILY for maintenance, #30 TAB 3 Refills 03/22/20 AMADO MORENO III DO Apr 26, 2021 11:27
--- NOTE | 2021-04-26 12:50 | DS ---
DATE OF DISCHARGE: 04/26/2021 ADMITTING DIAGNOSIS: Acute respiratory failure with hypoxia. DISCHARGE DIAGNOSES: Resolving respiratory failure, history of severe Parkinson's, aspiration pneumonia, hiatal hernia, dysphagia, wheelchair dependent, hypoxia, ileus and sepsis. CONSULTS: GI. PROCEDURES: None. HOSPITAL COURSE: The patient is a pleasant middle-aged male who has advanced Parkinson's and basically presented with respiratory failure and aspiration pneumonia. He was admitted. We gave him IV antibiotics. We made him n.p.o. We consulted GI. We gave him home meds and trended his labs. Over the past few days, he has slowly returned to his baseline. We had to do NG suctioning at first, but we have that ____. Today, I saw and examined him. He is probably at his baseline. He is very debilitated. He has advanced Parkinson's. I discussed the case with the pillowcase cleaner and the nurse. GI is okay with him going back to his [place] [facility]. Clinically, he is at his baseline. We are going to discharge back to his [place] [facility]. DISPOSITION: residential. ACTIVITY: As tolerated. DIET: We will resume his previous soft mechanical diet. MEDICATIONS: Flagyl 375 p.o. t.i.d. for 7 more days, p.r.n. Tylenol, amino acid packet 30 mL b.i.d., aspirin 81 a day, baclofen 20 t.i.d., bupropion XL 150 a day, Sinemet 25/100 one t.i.d., Cavilon 92 g b.i.d. to the 5th metatarsal, escitalopram 10 a day, Nizoral 120 at bedtime, Culturelle, Synthroid 75 a day, Ativan 0.5 a day, Biofreeze, multiple vitamins, Protonix 40 a day, MiraLax, Klor-Con 10 a day, Metamucil and senna. TOTAL TIME: 34 minutes. MILTON/ERICA DR: MILTON/henna TID: [id number]
[2021-04-26 15:00] VITALS: BP 114/63
--- NOTE | 2021-04-26 15:26 | NUR ---
This RN called report to DAVID Gil of [facility] at [phone].
--- NOTE | 2021-04-26 16:15 | NUR ---
Pt left unit at 1615 by stretcher via transportation. Pt's IV removed without complications, VSS. Discharge paperwork sent with pt at time of discharge.
== END 2021-04-26 16:18 | DRG 871 ==
LOC: ER 05:52 → 5 NORTH 08:18
PROVIDERS: ADMIT Family Medicine; ATTEND Family Medicine
PROC: 0D9670Z Drainage of Stomach with Drainage Device, Via Natural or Artificial Opening (ICD-10-PCS; principal; 2021-04-20)
DX: A41.9 Sepsis, unspecified organism (principal); J96.01 Acute respiratory failure with hypoxia; J69.0 Pneumonitis due to inhalation of food and vomit; K56.7 Ileus, unspecified; E03.9 Hypothyroidism, unspecified; F02.80 Dementia in other diseases classified elsewhere, unspecified severity, without behavioral disturbance, psychotic disturbance, mood disturbance, and anxiety; F32.A Depression, unspecified; F41.9 Anxiety disorder, unspecified; G20 Parkinson's disease; K44.9 Diaphragmatic hernia without obstruction or gangrene; M41.9 Scoliosis, unspecified; M43.6 Torticollis; N18.2 Chronic kidney disease, stage 2 (mild); N28.1 Cyst of kidney, acquired; R13.10 Dysphagia, unspecified; Z20.822 Contact with and (suspected) exposure to COVID-19; Z86.16 Personal history of COVID-19; Z99.3 Dependence on wheelchair; K21.9 Gastro-esophageal reflux disease without esophagitis; Z74.01 Bed confinement status; Z79.899 Other long term (current) drug therapy; Z88.0 Allergy status to penicillin
CPT/HCPCS: 36415; 36600; 43752; 70450; 71045; 74018; 74177; 80048; 80053; 80076; 80307; 81001; 82271; 82274; 82550; 82805; 82962; 83605; 83735; 83880; 84484; 85025; 85027; 85610; 85730; 87040; 87426; 93005; 96361; 96365; 96375; C9113; J0360; J0696; J2405; J3480; J3490; J7030; U0003; U0005; 92610-GN; 99285-25; G0378